=== PATIENT | female | born 1975 | race Two or more races ===

== ENCOUNTER → 2025-01-26 | Outpatient (CLI) | payer BC ==
[2025-01-26 16:15] LABS: Nucleated Red Blood Cells % 0.1 %
[2025-01-26 16:17] LABS: Hematocrit 33.5 % (36.0-46.0); Hemoglobin 10.6 g/dL (12.2-16.2); Mean Corpuscular Hemoglobin 26.8 pg (28.0-32.0); Mean Corpuscular Volume 84.6 fL (80.0-100.0)
== END | disposition home or self-care (01) ==
LOC: LAB 15:23
PROVIDERS: ATTEND Nurse Practitioner Family
DX: D50.0 Iron deficiency anemia secondary to blood loss (chronic) (principal)
CPT/HCPCS: 36415; 85025

== ENCOUNTER 2025-04-11 12:50 | Inpatient (IN) | payer BC ==
[~2025-04-11] VITALS: Ht 174 cm; Wt 131.0 kg
--- NOTE | 2025-04-11 14:48 | ED.PDOC ---
HPI (NEURO) HPI Comments 50 year old female with past medical history of MS presents to the ED with a chief complaint of generalized body pain onset 5 days. She has been experiencing generalized body pain, low back pain due to MS flare up, has been taking Baclofen with no improvement of symptoms.She has been hospitalized several times at [facility] for steroid treatments. No other symptoms or modifying factors present at this time. 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 History Family History Family History: Reviewed,noncontributory to illness, No family hx of Cancer, No family hx of DM, No family hx of Heart ricarda, No family hx of HTN, No family hx ofKidney ricarda, No family hx of Liver ricarda, No family hx of Lung ricarda, No family hx of Stroke Social History Smoker: Non-Smoker Alcohol: Denies ETOH Use Drugs: Denies Drug Use Lives In: Home All Other Systems: Reviewed and Negative (as per HPI) Physical Exam General Appearance: Normal HEENT: Normal ENT Inspection, Pharynx Normal, TMs Normal Neck: Full Range of Motion, Non-Tender, Normal, Normal Inspection Respiratory: Chest Non-Tender, Lungs Clear, No Accessory Muscle Use, No Respiratory Distress, Normal Breath Sounds Cardiovascular: No Edema, No JVD, No Murmur, No Gallop, Normal Peripheral Pulses, Regular Rate/Rhythm Breast Exam: Deferred Gastrointestinal: No Organomegaly, Non Tender, No Pulsatile Mass, Normal Bowel Sounds, Soft Genitalia: Deferred Pelvic: Deferred Rectal: Deferred Extremities: No calf tenderness, Normal capillary refill, Normal inspection, Normal range of motion, Non-tender, No pedal edema Musculoskeletal : Apperance: Normal Neurologic: Alert, electrical inspector II-XII nml as Tested, No Motor Deficits, Normal Affect, Normal Mood, No Sensory Deficits Cerebellar Function: Normal Reflexes: Normal Skin: Dry, Normal Color, Warm Lymphatic: No Adenopathy Was a procedure done? Was a procedure done?: No X-Ray, Labs, Meds, VS Vital Signs Date Time Temp Pulse Resp B/P (MAP) Pulse Ox O2 Delivery O2 Flow Rate FiO2 04/11/25 20:30 99.4 135 20 148/58 (88) 96 99.4 04/11/25 17:49 78 18 153/89 04/11/25 17:19 118 22 142/92 04/11/25 15:33 98.5 127 24 156/85 (108) 98 98.5 04/11/25 14:53 108 04/11/25 12:55 97.8 119 18 158/91 97 97.8 Lab Test 04/11/25 15:00 04/11/25 14:45 Range/Units White Blood Count 14.1 H 4.4-10.8 10^3/uL Red Blood Count 4.39 4.0-5.20 10^6/uL Hemoglobin 11.6 L 12.2-16.2 g/dL Hematocrit 36.6 36.0-46.0 % Mean Corpuscular Volume 83.4 80.0-100.0 fL Mean Corpuscular Hemoglobin 26.5 L 28.0-32.0 pg Mean Corpuscular Hemoglobin Concent 31.7 L 32.0-36.0 g/dL Red Cell Distribution Width 17.8 H 11.8-14.3 % Platelet Count 448 140-450 10^3/uL Mean Platelet Volume 6.7 L 6.9-10.8 fL Neutrophils (%) (Auto) 82.4 H 37.0-80.0 % Lymphocytes (%) (Auto) 10.2 10.0-50.0 % Monocytes (%) (Auto) 6.6 0.0-12.0 % Eosinophils (%) (Auto) 0.2 0.0-7.0 % Basophils (%) (Auto) 0.6 0.0-2.0 % Neutrophils # (Auto) 11.6 H 1.6-8.6 10 ^3/uL Lymphocytes # (Auto) 1.4 0.4-5.4 10 ^3/uL Monocytes # (Auto) 0.9 0-1.3 10 ^3/uL Eosinophils # (Auto) 0 0-0.8 10 ^3/uL Basophils # (Auto) 0.1 0-0.2 10 ^3/uL Nucleated Red Blood Cells 0.1 % Erythrocyte Sedimentation Rate 33 H 0-20 mm/hr Sodium Level 135 L 136-145 mmol/L Potassium Level 3.2 L 3.5-5.1 mmol/L Chloride Level 100 98-107 mmol/L Carbon Dioxide Level 23 20-31 mmol/L Anion Gap 12 5-15 Blood Urea Nitrogen 6 L 9-23 mg/dL Creatinine 0.90 0.550-1.02 mg/dL Glomerular Filtration Rate Calc 77 >90 mL/min BUN/Creatinine Ratio 6.7 L 10.0-20.0 Serum Glucose 100 74-106 mg/dL Calcium Level 9.2 8.7-10.4 mg/dL Magnesium Level 1.3 L 1.6-2.6 mg/dL Troponin I High Sensitivity 4 </=34 ng/L C-Reactive Protein High Sensitivity 1.38 H <1.0 mg/dL B-Type Natriuretic Peptide 110.11 0-100 pg/mL Urine Color Light-yellow Yellow Urine Clarity Turbid H Clear Urine pH 6.5 5.0-9.0 Urine Specific [place] 1.012 1.001-1.035 Urine Protein Negative Negative Urine Ketones Negative Negative Urine Blood Negative Negative /uL Urine Nitrite Negative Negative Urine Bilirubin Negative Negative Urine Urobilinogen Normal Negative mg/dL Urine Leukocyte Esterase Negative Negative /uL Urine RBC 1 0 - 4 /hpf Urine Microscopic WBC 1 0-5 /HPF Urine Squamous Epithelial Cells Mod <5 /hpf Urine Bacteria Few H None Seen /hpf Urine Hyaline Casts Few 0 - 2 /lpf Urine Glucose Normal Normal mg/dL Urine Test Negative Negative Urine Opiates Screen Neg NEGATIVE Urine Fentanyl Screen Neg NEGATIVE Urine Barbiturates Screen Neg NEGATIVE Urine Phencyclidine Screen Neg NEGATIVE Urine Amphetamines Screen Neg NEGATIVE Urine Benzodiazepines Screen Neg NEGATIVE Urine Cocaine Screen Neg NEGATIVE Urine Cannabinoids Screen Neg NEGATIVE X-Ray, Labs, Meds, VS Comment 50 year old female with past medical history of MS presents to the ED with a chief complaint of generalized body pain onset 5 days Patient arrives alert and oriented, ABC's intact, afebrile, vital signs stable, saturating well in room air Peripheral IV insertion+ labs were ordered. CBC was ordered to exclude anemia, blood loss, or infection. BMP was ordered to exclude electrolyte abnormalities, renal failure, dehydration, hyperglycemia ESR was ordered. C-reactive protein was ordered. Urinalysis was ordered to rule out UTI or hematuria. Patients work up was remarkable for MS flare up, Will be admitted for pain and possible IV steroids The patient's workup reveals that the patient needs further evaluation and/or treatment for the above medical conditions. Patient verbalized understanding of the above and is awaiting further evaluation by the admitting service. Time of 1ST Reevaluation: 15:15 Reevaluation 1ST: Unchanged Patient Education/Counseling: Diagnosis, Treatment Family Education/Counseling: No Family Present Departure 1 Departure Time of Disposition: 14:47 Impression: Primary Impression: Multiple sclerosis exacerbation Disposition: ADMITTED INPATIENT Condition: Serious e-Prescriptions Methylprednisolone (Medrol Dosepak) 4 Mg Benoit 4 MG PO UD, #21 TAB UAD Prov: EDUARDO AMADO DO 04/16/25 Furosemide (Lasix) 40 Mg Tab 40 MG PO DAILY for 20 Days, #20 TAB Prov: EDUARDO AMADO DO 04/16/25 Losartan Potassium (Losartan Potassium) 50 Mg Tab 50 MG PO DAILY for 30 Days, #30 TAB 3 Refills Prov: EDUARDO AMADO DO 04/16/25 Estradiol (Estradiol) 1 Mg Tab 0.5 MG PO Q12HR for 30 Days, #30 TAB 0 Refills Prov: EDUARDO AMADO DO 04/16/25 Critical Care Note Critical Care Time?: No Stability Stability form required: No Heart Score Heart Score: Heart Score Response (Comments) Value History N/A 0 EKG N/A 0 Age N/A 0 Risk Factors N/A 0 Troponin N/A 0 Total 0 I personally scribed for SHELLY LOERA NP ([email or web address]) on 04/11/25 at 14:55. Electronically submitted by Heather Brooks ([email or web address]). SHELLY LOERA NP Apr 11, 2025 14:48
[2025-04-11 15:20] LABS: Hematocrit 36.6 % (36.0-46.0); Hemoglobin 11.6 g/dL (12.2-16.2); Mean Corpuscular Hemoglobin 26.5 pg (28.0-32.0); Mean Corpuscular Volume 83.4 fL (80.0-100.0); Nucleated Red Blood Cells % 0.1 %
[2025-04-11 15:29] LABS: Chloride 100 mmol/L (98-107)
[2025-04-11 15:30] LABS: Anion Gap 12 (5-15); Calcium 9.2 mg/dL (8.7-10.4); Carbon Dioxide 23 mmol/L (20-31)
[2025-04-11 15:35] LABS: BUN/Creatinine Ratio 6.7 (10.0-20.0); Glucose 100 mg/dL (74-106)
[2025-04-11 15:36] LABS: Blood Urea Nitrogen 6 mg/dL (9-23); Potassium 3.2 mmol/L (3.5-5.1); Sodium 135 mmol/L (136-145)
[2025-04-11 16:37] LABS: Urine Protein, UAD Negative (Negative)
[2025-04-11] MEDS: MORPHINE SULFATE 4 MG/ML SYR/VIAL IV ONE (17:19)
[2025-04-11] MEDS: ONDANSETRON HCL 4 MG/2 ML VIAL IM ONE (17:20)
--- NOTE | 2025-04-11 21:26 | DVHHPRES ---
History of Present Illness Resident Creating Document: JUAN ANTONIO BLACK RESIDENT History of Present Illness Ms Lawrence Ogden, a 50-year-old female with past medical history of hypertension, relapsing remitting multiple sclerosis, hiatal hernia presented to the ER accompanied by , with the complaints of intractable back pain radiating to legs with tingling and shock-like sensations for 3 days. She denies any recent trauma. During these flares she denies any visual symptoms. She also reports having urinary frequency, urgency and burning sensation. She described her typical flare up as muscle and back pain. The patient was initially diagnosed with MS in 2002, after an episode of left eye blindness, which resolved after 12 weeks of treatment. Previously she had a neurologist from [facility], recently she is switched her insurance to [email or web address], now she has not established with any neurologist. She also has a pressure-like chest pain, no relation with breathing or position change. The patient was having shallow breathing most likely due to pain. She denies any cough, fever or any recent s ick contacts. She reports having following up with Dr. Blandon for the hiatal hernia, she is scheduled for endoscopy and colonoscopy with GI in August and September. She has no other complaints at this time. Past medical history: As above Past surgical history: Bilateral salpingo-oophorectomy followed by multiple ectopic pregnancies, umbilical hernia repair, cholecystectomy. Allergies: None Smoking: Cigarettes 15 pack years. Quit Vapes nicotine currently Alcohol: Drinks 3 glasses of beer everyday. Full code Review of Systems Genitourinary: Dysuria, Frequency, Incontinence Musculoskeletal: back pain Neurological: Weakness, Numbness Allergies: Coded Allergies: NO KNOWN ALLERGIES (Unverified , 04/11/25) Exam Vital Signs Vital Signs Date Time Temp Pulse Resp B/P (MAP) Pulse Ox O2 Delivery O2 Flow Rate FiO2 04/11/25 20:30 99.4 135 20 148/58 (88) 96 99.4 Exam Pt is lying on bed General Appearance: Alert, Oriented X3, Cooperative, Mild distress HEENT: Atraumatic, Mucous membranes moist/pink, internuclear ophthalmoplegia present, no consuelo-anam pupil Respiratory: Clear to auscultation, Normal air movement, No added sounds Cardiovascular: Regular rate, Normal S1, Normal S2, No murmurs Abdominal/ : Active bowel sounds, Soft, no distention, no tenderness Extremities: Bilateral 1+ pedal edema, Normal pulses, No tenderness/swelling Skin: No Significant rash, except past surgical scars Neuro: Normal speech, dermatomes of upper arm decreased sensation, 4/5 upper and lower extremity motor strength Psych/Mental Status: Mental status NL, Mood NL Nurse was there as compo caster during examination Labs/Xrays Labs Test 04/11/25 15:00 04/11/25 14:45 Range/Units White Blood Count 14.1 H 4.4-10.8 10^3/uL Red Blood Count 4.39 4.0-5.20 10^6/uL Hemoglobin 11.6 L 12.2-16.2 g/dL Hematocrit 36.6 36.0-46.0 % Mean Corpuscular Volume 83.4 80.0-100.0 fL Mean Corpuscular Hemoglobin 26.5 L 28.0-32.0 pg Mean Corpuscular Hemoglobin Concent 31.7 L 32.0-36.0 g/dL Red Cell Distribution Width 17.8 H 11.8-14.3 % Platelet Count 448 140-450 10^3/uL Mean Platelet Volume 6.7 L 6.9-10.8 fL Neutrophils (%) (Auto) 82.4 H 37.0-80.0 % Lymphocytes (%) (Auto) 10.2 10.0-50.0 % Monocytes (%) (Auto) 6.6 0.0-12.0 % Eosinophils (%) (Auto) 0.2 0.0-7.0 % Basophils (%) (Auto) 0.6 0.0-2.0 % Neutrophils # (Auto) 11.6 H 1.6-8.6 10 ^3/uL Lymphocytes # (Auto) 1.4 0.4-5.4 10 ^3/uL Monocytes # (Auto) 0.9 0-1.3 10 ^3/uL Eosinophils # (Auto) 0 0-0.8 10 ^3/uL Basophils # (Auto) 0.1 0-0.2 10 ^3/uL Nucleated Red Blood Cells 0.1 % Erythrocyte Sedimentation Rate 33 H 0-20 mm/hr Sodium Level 135 L 136-145 mmol/L Potassium Level 3.2 L 3.5-5.1 mmol/L Chloride Level 100 98-107 mmol/L Carbon Dioxide Level 23 20-31 mmol/L Anion Gap 12 5-15 Blood Urea Nitrogen 6 L 9-23 mg/dL Creatinine 0.90 0.550-1.02 mg/dL Glomerular Filtration Rate Calc 77 >90 mL/min BUN/Creatinine Ratio 6.7 L 10.0-20.0 Serum Glucose 100 74-106 mg/dL Calcium Level 9.2 8.7-10.4 mg/dL Troponin I High Sensitivity 4 </=34 ng/L C-Reactive Protein High Sensitivity 1.38 H <1.0 mg/dL Urine Color Light-yellow Yellow Urine Clarity Turbid H Clear Urine pH 6.5 5.0-9.0 Urine Specific [place] 1.012 1.001-1.035 Urine Protein Negative Negative Urine Ketones Negative Negative Urine Blood Negative Negative /uL Urine Nitrite Negative Negative Urine Bilirubin Negative Negative Urine Urobilinogen Normal Negative mg/dL Urine Leukocyte Esterase Negative Negative /uL Urine RBC 1 0 - 4 /hpf Urine Microscopic WBC 1 0-5 /HPF Urine Squamous Epithelial Cells Mod <5 /hpf Urine Bacteria Few H None Seen /hpf Urine Hyaline Casts Few 0 - 2 /lpf Urine Glucose Normal Normal mg/dL SEPSIS Sepsis Screen Date sepsis recognized/suspect: Apr 11, 2025 Time Sepsis recognized/suspect: 1257 Recent Procedure: No On Antibiotic Therapy: No Respiratory Rate >20: No Heart Rate >90: Yes Temp<36 C (96.8 F) or >38.3 C: No SBP <90 or MAP <65 mmHG: No New Acute Mental Status Change: No Is the patient on CPAP, BIPAP,: No Physician Orders Electrocardigram (04/11/25 14:41) Vital Signs Date Time Temp Pulse Resp B/P (MAP) Pulse Ox O2 Delivery O2 Flow Rate FiO2 04/11/25 20:30 99.4 135 20 148/58 (88) 96 99.4 04/11/25 17:19 118 22 142/92 04/11/25 15:33 98.5 127 24 156/85 (108) 98 98.5 04/11/25 14:53 108 Laboratory Tests Test 04/11/25 15:00 White Blood Count 14.1 10^3/uL (4.4-10.8) H Medications Medications Dose Ordered Sig/Mable Route Start Time Stop Time Status Last Admin Dose Admin Morphine Sulfate 4 mg ONCE ONCE IV 04/11/25 16:45 04/11/25 16:46 DC 04/11/25 17:19 4 MG Ondansetron HCl 4 mg ONCE ONCE IM 04/11/25 17:15 04/11/25 17:16 DC 04/11/25 17:20 4 MG Assessment/Plan Assessment/Plan Acute exacerbation of MS Intractable back pain due to MS MS triggered by possible pneumonia Rule out stroke -IV methylprednisolone 1000 mg daily -baclofen -tizanidine -IV Dilaudid and IV ondansetron for symptom control -neurology consulted -brain MRI ordered -Head CT ordered -vitamin B12 ordered Chest pain rule out ACS -EKG: No acute ischemic changes -troponin 3 times WNL Pneumonia due to Gram-positive or Gram-negative organism -IV ceftriaxone -IV azithromycin -ESR and CRP raised Microcytic hypochromic anemia -monitor H&H -stool FOBT sent -iron panel sent Hiatal hernia -IV pantoprazole -follow up outpatient with GI -endoscopy scheduled outpatient GI prophylaxis: Pantoprazole DVT prophylaxis: SCDs Diet: Clear liquid Goals of care discussed with the patient for more than 27 minutes: Full code status Case discussed with Dr. Sotelo, patient and RN Plan discussed with: Patient, Other (RN) Visit Coding STANDARD RES Billing Provider: DARRIAN SOTELO MD Date of Service if different f: Apr 12, 2025 Common Visit Codes: [id number] INP/OBS CARE (HIGH) Secondary Visit Codes: [id number] CARE PLAN 30 MINUTES JUAN ANTONIO BLACK RESIDENT Apr 11, 2025 21:26 MG VELOZ RESIDENT Apr 12, 2025 04:55
[2025-04-11 23:17] LABS: Opiate Scree,Urine Neg (NEGATIVE)
[2025-04-11 23:26] LABS: Amphetamine Screen, Urine Neg (NEGATIVE); Barbiturate Scree,Urine Neg (NEGATIVE); Benzodiazephine Screen, Urine Neg (NEGATIVE); Cannabinoid Screen, Urine Neg (NEGATIVE); Cocaine Screen, Urine Neg (NEGATIVE); Phencyclidine Screen, Urine Neg (NEGATIVE)
[2025-04-11] MEDS: POTASSIUM EFFERVESENT TAB 25 MEQ PO ONE (23:27)
[2025-04-11] MEDS: PANTOPRAZOLE 40 MG/10 ML VIAL INJ IV ONE (23:27)
[2025-04-11] MEDS: HYDROcodone-ACET 5/325MG TAB PO PRN (23:28)
[2025-04-11] MEDS: methylPREDNISolone SOD SUCC 1,000 MG in SODIUM CHL 0.9% 250 ML IV ONE (23:35)
[2025-04-12] MEDS: MAGNESIUM SULFATE 1GM/100ML 100 ML IV SCH (01:00)
[2025-04-12] MEDS: ONDANSETRON HCL 4 MG/2 ML VIAL IV PRN (02:18)
[2025-04-12] MEDS: HYDROmorphone HCL 2 MG/ML VL/or syr IV ONE ×2 (02:18→02:36)
[2025-04-12 02:29] VITALS: PULSE 120; RESP 18; O2SAT 98
--- NOTE | 2025-04-12 03:32 | DVH ---
CHEST RADIOGRAPH INDICATION: sob TECHNIQUE: Single frontal view of the chest was obtained COMPARISON: None FINDINGS: Lines and Tubes: None Lungs: Clear Pleura: No effusion. No pneumothorax. Cardiomediastinal contours: Unremarkable Bones: Unremarkable IMPRESSION: 1. No acute disease.
[2025-04-12] MEDS: AZITHROMYCIN 500MG/250ML 250 ML IV ONE (04:07)
[2025-04-12] MEDS ORDERED: TIZA4CAP7 PO (04:17)
[2025-04-12] MEDS ORDERED: BACL20TA PO (04:17)
[2025-04-12] MEDS: LORazepam 2MG/ML-1ML VIAL IV ONE (04:25)
[2025-04-12 04:47] LABS: COVID19 ANTIGEN SOFIA FIA NEGATIVE (NEGATIVE)
[2025-04-12 05:54] LABS: Hematocrit 34.0 % (36.0-46.0); Hemoglobin 11.1 g/dL (12.2-16.2); Mean Corpuscular Hemoglobin 27.1 pg (28.0-32.0); Mean Corpuscular Volume 83.0 fL (80.0-100.0); Nucleated Red Blood Cells % 0.0 %
[2025-04-12 06:15] LABS: Alanine Aminotransferase 20 U/L (7-40); Albumin 4.3 g/dL (3.2-4.8); Alkaline Phosphatase 66 U/L (46-116); Anion Gap 14 (5-15); Bilirubin, Total 0.6 mg/dL (0.2-1.0); Calcium 8.8 mg/dL (8.7-10.4); Carbon Dioxide 21 mmol/L (20-31); Total Protein 7.2 g/dL (5.7-8.2)
[2025-04-12 06:27] LABS: Chloride 96 mmol/L (98-107); Glucose 218 mg/dL (74-106); Potassium 3.4 mmol/L (3.5-5.1); Sodium 131 mmol/L (136-145)
[2025-04-12 06:32] LABS: BUN/Creatinine Ratio 5.5 (10.0-20.0)
[2025-04-12 06:36] LABS: Blood Urea Nitrogen 6 mg/dL (9-23)
[2025-04-12 06:50] LABS: Iron 25.0 ug/dL (50-170); Total Iron Binding Capacity 425.0 ug/dL (250-425)
--- NOTE | 2025-04-12 07:07 | ECG ---
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
--- NOTE | 2025-04-12 08:43 | DVH ---
EXAMINATION: MRI BRAIN HEAD WO CONTRAST INDICATION: MS flare up COMPARISON: None. TECHNIQUE: Multiplanar, multisequence magnetic resonance imaging of the brain was performed without the use of intravenous contrast. FINDINGS: No evidence of acute infarct. No intracranial hemorrhage. No mass effect. There are periventricular and deep white matter T2/FLAIR hyperintensities which are oriented perpendicular to the lateral ventricles. The appearance is most suggestive of demyelinating disease given the history of multiple sclerosis. The ventricles and sulci are normal in size for age. Clear basal cisterns. Flow voids in the major intracranial vessels are maintained. No abnormality of the orbits. Paranasal sinuses and mastoid air cells are clear. No abnormality of the visualized osseous structures and extracranial soft tissues. IMPRESSION: 1. No acute infarct, intracranial hemorrhage, mass effect, or hydrocephalus. 2. Periventricular and deep white matter T2/FLAIR hyperintensities are most suggestive of demyelinating disease given the history of multiple sclerosis. If there is concern for active demyelination, MRI of the brain with intravenous contrast is recommended.
--- NOTE | 2025-04-12 08:52 | DVH ---
CLINICAL HISTORY: R/o stroke TECHNIQUE: Helical scanning was performed of the head from the skull base to the vertex. Multiplanar reconstructions were performed. This exam was performed according to our departmental dose optimization program. Up-to-date CT equipment and radiation dose reduction techniques are utilized as appropriate. CTDI 53 DLP 964 COMPARISON: MRI BRAIN HEAD WO CONTRAST on DOS: 04/12/25 FINDINGS: There is no evidence for acute intracranial hemorrhage, acute ischemic changes, mass, mass effect, or extra-axial fluid collection. There is no hydrocephalus or midline shift. There is no effacement of the cerebral sulci and basal subarachnoid cisterns. The fortune-white matter differentiation is well maintained. The imaged paranasal sinuses are clear. IMPRESSION: NO ACUTE INTRACRANIAL ABNORMALITY SEEN.
[2025-04-12 10:19] VITALS: PULSE 104; RESP 16; O2SAT 95
[2025-04-12] MEDS: PANTOPRAZOLE 40 MG/10 ML VIAL INJ IV SCH (10:43)
[2025-04-12] MEDS: methylPREDNISolone SOD SUCC 1,000 MG in SODIUM CHL 0.9% 250 ML IV SCH (12:32)
[2025-04-12] MEDS ORDERED: HYDROmorphone HCL 2 MG/ML VL/or syr IV ONE (14:00)
[2025-04-12] MEDS: LORazepam 2MG/ML-1ML VIAL IV PRN (14:42)
[2025-04-12] MEDS: HYDROmorphone HCL 2 MG/ML VL/or syr IV PRN (14:54)
[2025-04-12] MEDS: LACTATED RINGER'S 1,000 ML IV SCH (15:00)
--- NOTE | 2025-04-12 16:21 | DVHPNRES ---
Progress Note Date Seen: Apr 12, 2025 Resident Creating Document: JODI GONZALEZ Medical Necessity Reason Pt with a Central, PICC or Fol: No Subjective Review of Systems Ms Lawrence Ogden, a 50-year-old female with past medical history of hypertension, relapsing remitting multiple sclerosis, hiatal hernia presented to the ER accompanied by , with the complaints of intractable back pain radiating to legs with tingling and shock-like sensations for 3 days. She denies any recent trauma. During these flares she denies any visual symptoms. She also reports having urinary frequency, urgency and burning sensation. She described her typical flare up as muscle and back pain. The patient was initially diagnosed with MS in 2002, after an episode of left eye blindness, which resolved after 12 weeks of treatment. Previously she had a neurologist from [facility], recently she is switched her insurance to [employer], now she has not established with any neurologist. She also has a pressure-like chest pain, no relation with breathing or position change. The patient was having shallow breathing most likely due to pain. She denies any cough, fever or any recent sick contacts. She reports having following up with Dr. Blandon for the hiatal hernia, she is scheduled for endoscopy and colonoscopy with GI in August and September. She has no other complaints at this time. Past medical history: As above Past surgical history: Bilateral salpingo-oophorectomy followed by multiple ectopic pregnancies, umbilical hernia repair, cholecystectomy. Allergies: None Smoking: Cigarettes 15 pack years. Quit Vapes nicotine currently Alcohol: Drinks 3 glasses of beer everyday. Objective vital signs Vital Sign Date Time Temp Pulse Resp B/P (MAP) Pulse Ox O2 Delivery O2 Flow Rate FiO2 04/12/25 15:36 98.0 91 16 142/73 (96) 95 98.0 04/12/25 10:19 Room Air* 0 21 medications Current Medications Medications Dose Ordered Sig/Mable Route Start Time Stop Time Status Last Admin Dose Admin Acetaminophen/ Hydrocodone Bitart 1 tab Q4HP PRN PO 04/11/25 21:30 04/11/25 23:28 1 TAB Methylprednisolone Sodium Succinate 1000 mg/Sodium Chloride 250 ml @ 300 mls/hr DAILY IV 04/12/25 10:00 04/12/25 12:32 300 MLS/HR Pantoprazole Sodium 40 mg DAILY IV 04/12/25 10:00 04/12/25 10:43 40 MG Ondansetron HCl 4 mg Q6HPRN PRN IV 04/11/25 22:30 04/12/25 10:42 4 MG Ceftriaxone Sodium 50 ml @ 100 mls/hr DAILY@09 IV 04/13/25 09:00 Azithromycin 250 ml @ 125 mls/hr DAILY IV 04/13/25 10:00 Lorazepam 1 mg Q6HP PRN IV 04/12/25 14:00 04/12/25 14:42 1 MG Hydromorphone HCl 0.5 mg Q4HPRN PRN IV 04/12/25 14:15 04/12/25 14:54 0.5 MG Lactated Ringer's 1,000 ml @ 60 mls/hr [id number] IV 04/12/25 15:00 Examination General Appearance: Alert, Oriented X3, Cooperative, Mild distress HEENT: Atraumatic, Mucous membranes moist/pink, internuclear ophthalmoplegia present, no consuelo-anam pupil Respiratory: Clear to auscultation, Normal air movement, No added sounds Cardiovascular: Regular rate, Normal S1, Normal S2, No murmurs Abdominal/ : Active bowel sounds, Soft, no distention, no tenderness Extremities: Bilateral 1+ pedal edema, Normal pulses, No tenderness/swelling Skin: No Significant rash, except past surgical scars Neuro: Normal speech, dermatomes of upper arm decreased sensation, 4/5 upper and lower extremity motor strength Psych/Mental Status: Mental status NL, Mood NL Nurse was there as c d still operator during examination laboratory and microbiology Laboratory Tests 04/12/25 05:28 Test 04/12/25 05:28 Range/Units Serum Glucose 218 H 74-106 mg/dL Problem List/Assessment/Plan Problem List/Assessment/Plan Assessment and plan Acute exacerbation of MS Intractable back pain due to MS MS triggered by possible pneumonia Ruled out stroke -IV methylprednisolone 1000 mg daily -baclofen -tizanidine -IV Dilaudid and IV ondansetron for symptom control -neurology consulted -brain MRI ordered -Head CT ordered -vitamin B12 ordered Chest pain ruled out ACS -EKG: No acute ischemic changes -troponin 3 times WNL Pneumonia due to Gram-positive or Gram-negative organism -IV ceftriaxone -IV azithromycin -ESR and CRP raised Microcytic hypochromic anemia -monitor H&H -stool FOBT sent -iron panel sent Hiatal hernia -IV pantoprazole -follow up outpatient with GI -endoscopy scheduled outpatient GI prophylaxis: Pantoprazole DVT prophylaxis: SCDs Diet: Clear liquid Goals of care discussed Full code status Case discussed with Dr. Mcintyre Plan discussed with: Patient Date of Service: Apr 12, 2025 Billing Provider: BHAVESH WARREN MD Common Visit Codes: [id number] INP/OBS CARE(HIGH) JODI GONZALEZ RESIDENT Apr 12, 2025 16:21
[2025-04-12 16:54] VITALS: BP 130/67; PULSE 114; RESP 16; TEMP 98; O2SAT 91
[2025-04-12] MEDS ORDERED: OMEP20TA PO (17:56)
[2025-04-12] MEDS ORDERED: FAMO-12 PO (17:56)
[2025-04-12] MEDS ORDERED: IBUP-1454 PO (17:56)
[2025-04-12] MEDS ORDERED: NORE-79 PO (17:56)
[2025-04-12] MEDS ORDERED: ESTR1TAB6 PO (17:57)
[2025-04-12] MEDS ORDERED: LOSA-534 PO (17:57)
--- NOTE | 2025-04-12 20:46 | DVHINCON2 ---
Date of service: Apr 12, [address] Glynn Reason for Consultation MS flares up History of Present Illness Ms. Bravo is a 50 years old right-handed female with a history of multiple sclerosis, obesity, she came to the [facility] on 06/12/2024 with a chief complaint of diffuse body pain, which is typical to her MS exacerbation. At that time, she is alert and fully oriented, she provided the following history She always has constant pain in the neck, back, and all his extremities, but since 02/03/2025, the patient has been 15 times stronger, which is typical to her MS exacerbation and she decided to come to hospital for medical attention In 2002, in the age of 27, she developed left eye blindness in that she had no light perception with recovered to baseline in about 12 weeks, she also had weakness in both legs, the patient was seen by a neurologist, after MR brain scan, MRI, in the lumbar puncture, the patient is found to have multiple sclerosis, the patient has been seen by many doctors, including neurologist in [facility], [facility], beta serum, Avonex, Copaxone caused severe flu-like symptoms, She was on Aubagio previously however she has not been on disease modifying treatment for five years. She said, before this time, the last MRI brain scan was a few years ago. The last time she had MS exacerbation was a few months earlier She has black control difficulty because of uterus disease She has tremors in the hands with the left-side more affected for about five years, the tremors a constant, no matter she is physically active now active, alcohol does not affect the tremors, at this time, because of diffuse body pain, has tremors all over the body as if he was shivering. Her father had tremors in both hands Urinalysis, 04/11/2025: WBC: 1, urine leukocyte esterase: Negative UDS, 04/11/2025: Negative WBC/HB/PLT/MCV, 04/12/2025: 11.7/11.1/419/83 ESR, 04/11/2025:33. Na 04/12/2025: 131 BUN/CIWA, 04/12/2025: 6/1.1 GFR, 04/12/2025: 60 Vitamin B12, 04/12/2025: 297 TSH, 04/12/2025: 0.84 Vitamin-D, 04/12/2025: 18.7 Chest x-ray, 04/11/2025: No acute disease CT head, 04/12/2025: NO ACUTE INTRACRANIAL ABNORMALITY SEEN. MRI head, 04/12/2025: 1. No acute infarct, intracranial hemorrhage, mass effect, or hydrocephalus. 2. Periventricular and deep white matter T2/FLAIR hyperintensities are most suggestive of demyelinating disease given the history of multiple sclerosis. If there is concern for active demyelination, MRI of the brain with intravenous contrast is recommended. Past Medical History Multiple sclerosis, obesity Past Surgical History Appendectomy, Cholecystectomy, Right ovary surgery, left ectopic surgery Family History: FH: sleep apnea G8 MOTHER FHx: atrial fibrillation G8 MOTHER G8 FATHER Family History Leukemia, atrial fibrillation Social History She vapes, but no history of drug/alcohol abuse Allergies: Coded Allergies: NO KNOWN ALLERGIES (Unverified , 04/11/25) Home Meds Reported Medications Estradiol (Estradiol) 1 Mg Tab, 1 MG PO DAILY, MG 04/12/25 Losartan Potassium (Losartan Potassium) 50 Mg Tab, 50 MG PO DAILY for 30 Days, MG 04/12/25 Omeprazole (Gnp Omeprazole) 20 Mg Tab, 1 TAB PO DAILY, #90 TAB 1 Refill 04/12/25 Norethin Acet & Estrad-Fe (Microgestin Fe) Fe 05/23 Tab, 1 TAB PO DAILY, #28 TAB 11 Refills 04/12/25 Ibuprofen (Ibuprofen) 600 Mg Tab, 600 MG PO Q8HPRN PRN for PAIN SCALE 1 THRU 6, MG 0 Refills 04/12/25 Famotidine (Famotidine) 20 Mg Tab, 40 MG PO DAILY for 30 Days, MG 04/12/25 Tizanidine Hydrochloride (TIZANIDINE HCL) 4 Mg Cap, 4 CAP PO Q8HPRN PRN 04/12/25 Baclofen (Baclofen) 20 Mg Tab, 20 TAB PO TID 04/12/25 Current Medications Current Medications Medications (Trade) Dose Ordered Sig/Mable Route PRN Reason Start Time Stop Time Status Last Admin Acetaminophen/ Hydrocodone Bitart (Hart 5/325MG Tab) 1 tab Q4HP PRN PO MODERATE PAIN (4-6 PAIN SCALE) 04/11/25 21:30 04/11/25 23:28 Methylprednisolone Sodium Succinate 1000 mg/Sodium Chloride 250 ml @ 300 mls/hr DAILY IV 04/12/25 10:00 04/12/25 12:32 Pantoprazole Sodium (Protonix) 40 mg DAILY IV 04/12/25 10:00 04/12/25 10:43 Ondansetron HCl (Zofran) 4 mg Q6HPRN PRN IV NAUSEA / VOMITING 04/11/25 22:30 04/12/25 10:42 Magnesium Sulfate/ Dextrose 100 ml @ 100 mls/hr Q1HR IV 04/12/25 00:00 04/12/25 01:59 DC 04/12/25 01:00 Ceftriaxone Sodium 50 ml @ 100 mls/hr DAILY@09 IV 04/13/25 09:00 Azithromycin 250 ml @ 125 mls/hr DAILY IV 04/13/25 10:00 Lorazepam (Ativan Inj) 1 mg Q6HP PRN IV ANXIETY 04/12/25 14:00 04/12/25 14:42 Hydromorphone HCl (Dilaudid Injection) 0.5 mg Q4HPRN PRN IV PAIN SCALE 7 THRU 10 04/12/25 14:15 04/12/25 14:54 Lactated Ringer's 1,000 ml @ 60 mls/hr [id number] IV 04/12/25 15:00 04/12/25 15:00 Ergocalciferol (Vitamin D 50,000 Unit) 50,000 unit Q7D PO 04/12/25 20:15 UNV Review of Systems As above, the other systems are negative Vital Signs Vital Signs Date Time Temp Pulse Resp B/P (MAP) Pulse Ox O2 Delivery O2 Flow Rate FiO2 04/12/25 20:00 Room Air* 0 21 04/12/25 16:54 114 16 91 04/12/25 16:54 98.0 130/67 (88) 98.0 Physical Exam GENERAL EXAM: General: the patient is well developed and nourished. No acute distress. HEENT: Normocephalic, neck is supple, no carotid bruits. No mass. RESPIRATORY: Normal respiratory effort with symmetrical lung expansion. Lungs clear to auscultation. CARDIOVASCULAR: Regular rate and rhythm with no murmurs. S1, S2. ABDOMEN: Soft, nontender, normal bowel sound NEUROLOGICAL: MENTAL STATUS: Awake and alert. Oriented to person, place, time and general circumstances. Able to give personal history. SPEECH, LANGUAGE, HIGHER CORTICAL FUNCTION: no aphasia or dysathria. CRANIAL NERVES: #2: Intact visual vera to confrontation. The optic discs were sharp. #3,4,6: Pupils are equal, round and reactive. EOMs full and conjugate. No nystagmus. #5: Facial sensation intact in all three divisions bilaterally. Mandibular strength intact. #7: Facial muscles symmetrical and strength intact. #8: Hearing grossly normal to voice. #9,10: Uvula and soft palate rise in the midline. Swallow and voice are normal. #11: Trapezius and sternomastoid strength intact bilaterally. #12: Tongue midline. No fasciculations or atrophy. SENSATION: Sensation to touch and pinprick is normal. MOTOR: Normal tone in the upper and lower extremity. Normal muscle bulk. No fasciculations. Constant mild tremor in torso and both upper extremities. Muscle strength of the major groups in the upper extremities is 5/5. Muscle strength of the major groups in the lower extremities is 5/5. REFLEXES: Deep tendon reflexes are symmetrical. No pathological reflexes. CEREBELLAR/COORDINATION: Finger to nose is normal bilaterally. GAIT/STATION: deferred. Labs/Diagnostic Data Labs Test 04/12/25 05:28 04/12/25 05:25 04/12/25 03:30 04/11/25 15:00 Range/Units White Blood Count 11.7 H 4.4-10.8 10^3/uL Red Blood Count 4.10 4.0-5.20 10^6/uL Hemoglobin 11.1 L 12.2-16.2 g/dL Hematocrit 34.0 L 36.0-46.0 % Mean Corpuscular Volume 83.0 80.0-100.0 fL Mean Corpuscular Hemoglobin 27.1 L 28.0-32.0 pg Mean Corpuscular Hemoglobin Concent 32.6 32.0-36.0 g/dL Red Cell Distribution Width 17.9 H 11.8-14.3 % Platelet Count 419 140-450 10^3/uL Mean Platelet Volume 6.8 L 6.9-10.8 fL Neutrophils (%) (Auto) 96.0 H 37.0-80.0 % Lymphocytes (%) (Auto) 3.3 L 10.0-50.0 % Monocytes (%) (Auto) 0.4 0.0-12.0 % Eosinophils (%) (Auto) 0.0 0.0-7.0 % Basophils (%) (Auto) 0.3 0.0-2.0 % Neutrophils # (Auto) 11.2 H 1.6-8.6 10 ^3/uL Lymphocytes # (Auto) 0.4 0.4-5.4 10 ^3/uL Monocytes # (Auto) 0.1 0-1.3 10 ^3/uL Eosinophils # (Auto) 0 0-0.8 10 ^3/uL Basophils # (Auto) 0 0-0.2 10 ^3/uL Nucleated Red Blood Cells 0.0 % Sodium Level 131 L 136-145 mmol/L Potassium Level 3.4 L 3.5-5.1 mmol/L Chloride Level 96 L 98-107 mmol/L Carbon Dioxide Level 21 20-31 mmol/L Anion Gap 14 5-15 Blood Urea Nitrogen 6 L 9-23 mg/dL Creatinine 1.10 H 0.550-1.02 mg/dL Glomerular Filtration Rate Calc 60 >90 mL/min BUN/Creatinine Ratio 5.5 L 10.0-20.0 Serum Glucose 218 H 74-106 mg/dL Calcium Level 8.8 8.7-10.4 mg/dL Iron Level 25 L 50-170 ug/dL Total Iron Binding Capacity 425 250-425 ug/dL Percent Iron Saturation 5.9 L 15-50 % Total Bilirubin 0.6 0.2-1.0 mg/dL Aspartate Amino Transferase (AST) 23 13-40 U/L Alanine Aminotransferase (ALT) 20 7-40 U/L Alkaline Phosphatase 66 46-116 U/L Total Protein 7.2 5.7-8.2 g/dL Albumin 4.3 3.2-4.8 g/dL Vitamin B12 Level 297 211-911 pg/mL Vitamin D 25-Hydroxy 18.7 L 30.0-100 ng/mL Thyroid Stimulating Hormone (TSH) 0.84 0.55-4.78 uIU/mL Influenza Type A Antigen Negative Negative Influenza Type B Antigen Negative Negative SARS-CoV-2 Antigen (Rapid) Negative NEGATIVE Erythrocyte Sedimentation Rate 33 H 0-20 mm/hr Troponin I High Sensitivity 4 </=34 ng/L C-Reactive Protein High Sensitivity 1.38 H <1.0 mg/dL B-Type Natriuretic Peptide 110.11 0-100 pg/mL Test 04/11/25 14:45 Range/Units Urine Color Light-yellow Yellow Urine Clarity Turbid H Clear Urine pH 6.5 5.0-9.0 Urine Specific [place] 1.012 1.001-1.035 Urine Protein Negative Negative Urine Ketones Negative Negative Urine Blood Negative Negative /uL Urine Nitrite Negative Negative Urine Bilirubin Negative Negative Urine Urobilinogen Normal Negative mg/dL Urine Leukocyte Esterase Negative Negative /uL Urine RBC 1 0 - 4 /hpf Urine Microscopic WBC 1 0-5 /HPF Urine Squamous Epithelial Cells Mod <5 /hpf Urine Bacteria Few H None Seen /hpf Urine Hyaline Casts Few 0 - 2 /lpf Urine Glucose Normal Normal mg/dL Urine Test Negative Negative Urine Opiates Screen Neg NEGATIVE Urine Fentanyl Screen Neg NEGATIVE Urine Barbiturates Screen Neg NEGATIVE Urine Phencyclidine Screen Neg NEGATIVE Urine Amphetamines Screen Neg NEGATIVE Urine Benzodiazepines Screen Neg NEGATIVE Urine Cocaine Screen Neg NEGATIVE Urine Cannabinoids Screen Neg NEGATIVE Assessment Reported history of multiple sclerosis Diffuse body pain/MS exacerbation Tremors, etiology unclear Plan/Recommendation Monitoring Supportive treatment IV Solu-Medrol 1000 mg IV daily x5 GI prophylaxis/pantoprazole DVT prophylaxis/Lovenox More recommendation per clinical course Prognosis: Poor This medical document was created using an electronic medical record system with M[employer] dictation system. Although this document has been carefully reviewed, there may still be some phonetic and typographical errors. These areas are purely typographical due to imperfections of the software programs, and do not reflect any compromise in the patient's medical care. Plan discussed with: Patient, Other ALICE FONTENOT MD Apr 12, 2025 20:46
[2025-04-12 21:00] VITALS: BP 134/71; PULSE 115; RESP 18; TEMP 97.4; O2SAT 95
[2025-04-12] MEDS: POTASSIUM EFFERVESENT TAB 25 MEQ PO ONE (21:39)
[2025-04-12] MEDS: ERGOCALCIFEROL 50,000 UNIT(1.25MG) CAP PO SCH (21:40)
[2025-04-12] MEDS: MELATONIN 5 MG TAB PO ONE (23:31)
[2025-04-13 01:00] VITALS: BP 137/72; PULSE 102; RESP 18; TEMP 97.2; O2SAT 95
[2025-04-13 05:00] VITALS: BP 143/72; PULSE 101; RESP 18; O2SAT 94
[2025-04-13 06:44] LABS: Hematocrit 33.8 % (36.0-46.0); Hemoglobin 10.9 g/dL (12.2-16.2); Mean Corpuscular Hemoglobin 26.7 pg (28.0-32.0); Mean Corpuscular Volume 82.9 fL (80.0-100.0); Nucleated Red Blood Cells % 0.1 %
[2025-04-13 06:51] LABS: Alanine Aminotransferase 25 U/L (7-40); Albumin 4.1 g/dL (3.2-4.8); Alkaline Phosphatase 57 U/L (46-116); Anion Gap 12 (5-15); BUN/Creatinine Ratio 12.5 (10.0-20.0); Bilirubin, Total 0.5 mg/dL (0.2-1.0); Blood Urea Nitrogen 11 mg/dL (9-23); Calcium 8.9 mg/dL (8.7-10.4); Carbon Dioxide 26 mmol/L (20-31); Chloride 99 mmol/L (98-107); Potassium 3.7 mmol/L (3.5-5.1); Sodium 137 mmol/L (136-145); Total Protein 6.9 g/dL (5.7-8.2)
[2025-04-13 06:52] LABS: Glucose 146 mg/dL (74-106)
[2025-04-13 09:17] VITALS: BP 146/73; PULSE 90; RESP 20; O2SAT 92
--- NOTE | 2025-04-13 09:17 | DVHPN2 ---
Progress Note - Dictate Date Seen: Apr 13, 2025 Medical Necessity Reason Pt with a Central, PICC or Fol: No Subjective Ms. Lawrence is a 50 years old right-handed female with a history of multiple sclerosis, obesity, she came to the [facility] on 06/12/2024 with a chief complaint of diffuse body pain, which is typical to her MS exacerbation. I have seen and examined the patient, talked to her nurse, she is doing fine, alert and fully oriented, the diffuse tremors are better/less intense, no new complaints She always has constant pain in the neck, back, and all his extremities, but since 02/03/2025, the patient has been 15 times stronger, which is typical to her MS exacerbation and she decided to come to hospital for medical attention Urinalysis, 04/11/2025: WBC: 1, urine leukocyte esterase: Negative UDS, 04/11/2025: Negative WBC/HB/PLT/MCV, 04/12/2025: 11.7/11.1/419/83 ESR, 04/11/2025:33. Na 04/12/2025: 131 BUN/CIWA, 04/12/2025: 6/1.1 GFR, 04/12/2025: 60, 04/13/2025: 79 Vitamin B12, 04/12/2025: 297 TSH, 04/12/2025: 0.84 Vitamin-D, 04/12/2025: 18.7 Chest x-ray, 04/11/2025: No acute disease CT head, 04/12/2025: NO ACUTE INTRACRANIAL ABNORMALITY SEEN. MRI head, 04/12/2025: 1. No acute infarct, intracranial hemorrhage, mass effect, or hydrocephalus. 2. Periventricular and deep white matter T2/FLAIR hyperintensities are most suggestive of demyelinating disease given the history of multiple sclerosis. If there is concern for active demyelination, MRI of the brain with intravenous contrast is recommended vital signs Vital Sign Date Time Temp Pulse Resp B/P (MAP) Pulse Ox O2 Delivery O2 Flow Rate FiO2 04/13/25 05:00 101 18 143/72 (95) 94 04/13/25 01:00 97.2 97.2 04/12/25 20:00 Room Air* 0 21 Total Intake and Output 04/12/25 04/12/25 04/13/25 15:00 23:00 07:00 Intake Total 250 ml 100 ml 150 ml Balance 250 ml 100 ml 150 ml medications Current Medications Medications Dose Ordered Sig/Mable Route Start Time Stop Time Status Last Admin Dose Admin Acetaminophen/ Hydrocodone Bitart 1 tab Q4HP PRN PO 04/11/25 21:30 04/11/25 23:28 1 TAB Methylprednisolone Sodium Succinate 1000 mg/Sodium Chloride 250 ml @ 300 mls/hr DAILY IV 04/12/25 10:00 04/12/25 12:32 300 MLS/HR Pantoprazole Sodium 40 mg DAILY IV 04/12/25 10:00 04/12/25 10:43 40 MG Ondansetron HCl 4 mg Q6HPRN PRN IV 04/11/25 22:30 04/12/25 10:42 4 MG Ceftriaxone Sodium 50 ml @ 100 mls/hr DAILY@09 IV 04/13/25 09:00 Azithromycin 250 ml @ 125 mls/hr DAILY IV 04/13/25 10:00 Lorazepam 1 mg Q6HP PRN IV 04/12/25 14:00 04/13/25 02:19 1 MG Hydromorphone HCl 0.5 mg Q4HPRN PRN IV 04/12/25 14:15 04/12/25 14:54 0.5 MG Lactated Ringer's 1,000 ml @ 60 mls/hr [id number] IV 04/12/25 15:00 04/13/25 07:58 60 MLS/HR Ergocalciferol 50,000 unit Q7D PO 04/12/25 20:15 04/12/25 21:40 50,000 UNIT Enoxaparin Sodium 40 mg DAILY SC 04/13/25 10:00 objective General: the patient is well developed and nourished. No acute distress. MENTAL STATUS: Subjective SPEECH, LANGUAGE, HIGHER CORTICAL FUNCTION: no aphasia or dysathria. CRANIAL NERVES: Pupils are equal, round and reactive. EOMs full and conjugate. No nystagmus. Facial sensation intact in all three divisions bilaterally. Mandibular strength intact. Facial muscles symmetrical and strength intact. SENSATION: Sensation to touch and pinprick is normal. MOTOR: Normal tone in the upper and lower extremity. Normal muscle bulk. No fasciculations. Constant mild tremor in torso and both upper extremities. Muscle strength of the major groups in the extremities is 5/5. REFLEXES: Deep tendon reflexes are symmetrical. No pathological reflexes. CEREBELLAR/COORDINATION: Finger to nose is normal bilaterally. GAIT/STATION: Unremarkable laboratory and microbiology Laboratory Tests 04/13/25 05:53 Test 04/13/25 05:53 Range/Units Serum Glucose 146 H 74-106 mg/dL Problem List Reported history of multiple sclerosis Diffuse body pain/MS exacerbation Tremors, etiology unclear Assessment/Plan Monitoring Supportive treatment IV Solu-Medrol 1000 mg IV daily x5, 1st dose: 04/12/2025 GI prophylaxis/pantoprazole DVT prophylaxis/Lovenox More recommendation per clinical course This medical document was created using an electronic medical record system with [employer] computerized dictation system. Although this document has been carefully reviewed, there may still be some phonetic and typographical errors. These areas are purely typographical due to imperfections of the software programs, and do not reflect any compromise in the patient's medical care. Prognosis poor Plan discussed with: Patient, Other Total Time (mins): 35 ALICE FONTENOT MD Apr 13, 2025 09:17
[2025-04-13] MEDS: ENOXAPARIN SOD 40 MG/0.4 ML SYRINGE SC SCH (10:01)
[2025-04-13] MEDS: AZITHROMYCIN 500MG/250ML 250 ML IV SCH (10:01)
--- NOTE | 2025-04-13 12:54 | DVHSR ---
APPROVED REPORT EXAM: LIMITED Two-dimensional and M-mode echocardiogram with Doppler and color Doppler. Blood Pressure: 153/80 mmHg INDICATION shortness of breath, edema RISK FACTORS Height: 5'8, Weight: 269 DIMENSIONS LVDd 4.6 (3.8-5.7cm) LA (2D) 4.0 (1.9-4.0cm) Aortic Root 3.0 (2.0-3.7cm) LVDs 3.1 (2.5-4.0cm) LA (MM) (1.9-4.0cm) Aortic Cusp Exc 1.6 (1.5-2.0cm) EF (%) 62.1 (55-70%) Rt. Atrium 3.7 (1.9-4.0cm) Asc. Aorta 3.5 cm IVSd 0.7 (0.7-1.1cm) RV (D) (1.8-2.4cm) PWd 0.9 (0.7-1.1cm) Mitral Valve Mitral Mitral Stenosis E wave 1.00m/s MV Mean GR. mmHg A wave 0.87m/s MV Peak GR. mmHg E/A ratio 1.1 2D MVA cm2 DECEL Time 160ms PRESS 1/2 Time ms Aortic Valve Aortic Valve Aortic Stenosis V1 1.02m/s AO Mean GR. 6mmHg V2 1.47m/s AO Peak GR. 9mmHg LVOT Diameter 2.1 (1.8-2.4cm) Doppler SACHIN 2.40cm2 Pulmonic Valve V2 1.33m/s Tricuspid Valve TR Velocity 2.44m/s RVSP 24mmHg Other Information Quality : Technically Limited Rhythm : Technically limited study due to patient position.body habitus. Conclusion LVEF is normal at 60-65% Right ventricle size borderline dilated and function is normal
[2025-04-13 13:35] VITALS: BP 137/76; PULSE 112; RESP 20; TEMP 97.5; O2SAT 95
--- NOTE | 2025-04-13 14:57 | DVHPNRES ---
Progress Note Date Seen: Apr 13, 2025 Resident Creating Document: JODI GONZALEZ Medical Necessity Reason Pt with a Central, PICC or Fol: No Subjective Review of Systems Patient seen at bedside. Complaints of back pain radiating to the leg, improved from admission. Ms Lawrence Ogden, a 50-year-old female with past medical history of hypertension, relapsing remitting multiple sclerosis, hiatal hernia presented to the ER accompanied by , with the complaints of intractable back pain radiating to legs with tingling and shock-like sensations for 3 days. She denies any recent trauma. During these flares she denies any visual symptoms. She also reports having urinary frequency, urgency and burning sensation. She described her typical flare up as muscle and back pain. The patient was initially diagnosed with MS in 2002, after an episode of left eye blindness, which resolved after 12 weeks of treatment. Previously she had a neurologist from [facility], recently she is switched her insurance to [employer] [facility] ([employer]), now she has not established with any neurologist. She also has a pressure-like chest pain, no relation with breathing or position change. The patient was having shallow breathing most likely due to pain. She denies any cough, fever or any recent sick contacts. She reports having following up with Dr. Blandon for the hiatal hernia, she is scheduled for endoscopy and colonoscopy with GI in August and September. She has no other complaints at this time. Past medical history: As above Past surgical history: Bilateral salpingo-oophorectomy followed by multiple ectopic pregnancies, umbilical hernia repair, cholecystectomy. Allergies: None Smoking: Cigarettes 15 pack years. Quit Vapes nicotine currently Alcohol: Drinks 3 glasses of beer everyday. Objective vital signs Vital Sign Date Time Temp Pulse Resp B/P (MAP) Pulse Ox O2 Delivery O2 Flow Rate FiO2 04/13/25 10:03 75 20 136/74 04/13/25 09:17 92 04/13/25 08:00 Room Air* 0 21 04/13/25 01:00 97.2 97.2 Total Intake and Output 04/12/25 04/12/25 04/13/25 15:00 23:00 07:00 Intake Total 250 ml 100 ml 150 ml Balance 250 ml 100 ml 150 ml medications Current Medications Medications Dose Ordered Sig/Mable Route Start Time Stop Time Status Last Admin Dose Admin Acetaminophen/ Hydrocodone Bitart 1 tab Q4HP PRN PO 04/11/25 21:30 04/11/25 23:28 1 TAB Methylprednisolone Sodium Succinate 1000 mg/Sodium Chloride 250 ml @ 300 mls/hr DAILY IV 04/12/25 10:00 04/13/25 11:28 300 MLS/HR Pantoprazole Sodium 40 mg DAILY IV 04/12/25 10:00 04/13/25 10:01 40 MG Ondansetron HCl 4 mg Q6HPRN PRN IV 04/11/25 22:30 04/12/25 10:42 4 MG Lorazepam 1 mg Q6HP PRN IV 04/12/25 14:00 04/13/25 02:19 1 MG Hydromorphone HCl 0.5 mg Q4HPRN PRN IV 04/12/25 14:15 04/13/25 09:33 0.5 MG Lactated Ringer's 1,000 ml @ 60 mls/hr [id number] IV 04/12/25 15:00 04/13/25 07:58 60 MLS/HR Ergocalciferol 50,000 unit Q7D PO 04/12/25 20:15 04/12/25 21:40 50,000 UNIT Enoxaparin Sodium 40 mg DAILY SC 04/13/25 10:00 04/13/25 10:01 40 MG Losartan Potassium 50 mg DAILY PO 04/14/25 10:00 Estradiol 0.5 mg Q12HR PO 04/13/25 20:00 Baclofen 10 mg BID PO 04/13/25 22:00 Sucralfate 1 gm BID@0600,2200 PO 04/13/25 22:00 Examination General Appearance: Alert, Oriented X3, Cooperative, Mild distress HEENT: Atraumatic, Mucous membranes moist/pink, internuclear ophthalmoplegia present, no consuelo-anam pupil Respiratory: Clear to auscultation, Normal air movement, No added sounds Cardiovascular: Regular rate, Normal S1, Normal S2, No murmurs Abdominal/ : Active bowel sounds, Soft, no distention, no tenderness Extremities: Bilateral 1+ pedal edema, Normal pulses, No tenderness/swelling Skin: No Significant rash, except past surgical scars Neuro: Normal speech, dermatomes of upper arm decreased sensation, 4/5 upper and lower extremity motor strength Psych/Mental Status: Mental status NL, Mood NL Nurse was there as destination coordinator during examination laboratory and microbiology Laboratory Tests 04/13/25 05:53 Test 04/13/25 05:53 Range/Units Serum Glucose 146 H 74-106 mg/dL Microbiology Date/Time Source Procedure Growth Status 04/12/25 11:41 Nose MRSA Screen - Final Complete Problem List/Assessment/Plan Problem List/Assessment/Plan Assessment and plan Acute exacerbation of MS Intractable back pain due to MS MS triggered by possible pneumonia Ruled out stroke -IV methylprednisolone 1000 mg daily for 5 days -baclofen -tizanidine -IV Dilaudid and IV ondansetron for symptom control -neurology consulted -brain MRI ordered -Head CT ordered -vitamin B12 ordered -carafate -baclofen Chest pain ruled out ACS -EKG: No acute ischemic changes -troponin 3 times WNL Pneumonia due to Gram-positive or Gram-negative organism -IV ceftriaxone -IV azithromycin -ESR and CRP raised Microcytic hypochromic anemia -monitor H&H -stool FOBT sent -iron panel sent Hiatal hernia -IV pantoprazole -follow up outpatient with GI -endoscopy scheduled outpatient GI prophylaxis: Pantoprazole DVT prophylaxis: SCDs Diet: Clear liquid Goals of care discussed Full code status Case discussed with Dr. Mcintyre Plan discussed with: Patient My Orders My Orders Orders - JODI GONZALEZ RESIDENT Procedure Category Date Status Time Losartan Tablet PHA 04/14/25 In Process (Cozaar Tablet) 10:00 Estradiol Tablet PHA 04/13/25 In Process (Estrace Tablet) 20:00 Sucralfate Susp PHA 04/13/25 In Process (Carafate Susp) 22:00 Mechanical Soft Diet DIET 04/13/25 Transmitted Lunch Complete Blood Count LAB 04/14/25 Verified 04:00 Comprehensive LAB 04/14/25 Verified Metabolic Panel 04:00 Date of Service: Apr 13, 2025 Billing Provider: BHAVESH WARREN MD Common Visit Codes: [id number] INP/OBS CARE(HIGH) JODI GONZALEZ RESIDENT Apr 13, 2025 14:57
[2025-04-13 17:00] VITALS: BP 108/73; PULSE 105; RESP 20; TEMP 97; O2SAT 94
[2025-04-13] MEDS: ESTRADIOL 1 MG TAB PO SCH (20:00)
[2025-04-13 21:00] VITALS: BP 134/83; PULSE 91; RESP 20; TEMP 97.7; O2SAT 94
[2025-04-13] MEDS: BACLOFEN 10 MG TAB PO SCH (21:42)
[2025-04-13] MEDS: SUCRALFATE 1 GM/10 ML ORAL SUSP PO SCH (21:42)
[2025-04-14] VITALS (8 sets, daily range): BP systolic 150–164; BP diastolic 84–98; PULSE 83–135; RESP 17–20; TEMP 97.4–98.9; O2SAT 92–96
[2025-04-14 08:19] LABS: Hemoglobin 11.4 g/dL (12.2-16.2); Mean Corpuscular Hemoglobin 26.2 pg (28.0-32.0); Nucleated Red Blood Cells % 0.0 %
[2025-04-14 08:22] LABS: Hematocrit 36.2 % (36.0-46.0); Mean Corpuscular Volume 82.9 fL (80.0-100.0)
[2025-04-14 08:36] LABS: Albumin 4.6 g/dL (3.2-4.8); Alkaline Phosphatase 59 U/L (46-116); Anion Gap 16 (5-15); BUN/Creatinine Ratio 13.6 (10.0-20.0); Blood Urea Nitrogen 18 mg/dL (9-23); Calcium 9.4 mg/dL (8.7-10.4); Carbon Dioxide 22 mmol/L (20-31); Chloride 101 mmol/L (98-107); Potassium 4.2 mmol/L (3.5-5.1); Sodium 139 mmol/L (136-145); Total Protein 7.6 g/dL (5.7-8.2)
[2025-04-14 08:37] LABS: Bilirubin, Total 0.5 mg/dL (0.2-1.0)
[2025-04-14 08:42] LABS: Alanine Aminotransferase 52 U/L (7-40); Glucose 142 mg/dL (74-106)
[2025-04-14] MEDS: LOSARTAN POTASSIUM 50 MG TAB PO SCH (10:55)
--- NOTE | 2025-04-14 13:02 | DVHPNRES ---
Progress Note Date Seen: Apr 14, 2025 Resident Creating Document: JODI GONZALEZ Medical Necessity Reason Pt with a Central, PICC or Fol: No Subjective Review of Systems Patient seen at bedside. Complaints of back pain radiating to the leg, improved from admission. Patient is agitated and confused. Ms Lawrence Ogden, a 50-year-old female with past medical history of hypertension, relapsing remitting multiple sclerosis, hiatal hernia presented to the ER accompanied by , with the complaints of intractable back pain radiating to legs with tingling and shock-like sensations for 3 days. She denies any recent trauma. During these flares she denies any visual symptoms. She also reports having urinary frequency, urgency and burning sensation. She described her typical flare up as muscle and back pain. The patient was initially diagnosed with MS in 2002, after an episode of left eye blindness, which resolved after 12 weeks of treatment. Previously she had a neurologist from [facility], recently she is switched her insurance to [employer], now she has not established with any neurologist. She also has a pressure-like chest pain, no relation with breathing or position change. The patient was having shallow breathing most likely due to pain. She denies any cough, fever or any recent sick contacts. She reports having following up with Dr. Blandon for the hiatal hernia, she is scheduled for endoscopy and colonoscopy with GI in August and September. She has no other complaints at this time. Past medical history: As above Past surgical history: Bilateral salpingo-oophorectomy followed by multiple ectopic pregnancies, umbilical hernia repair, cholecystectomy. Allergies: None Smoking: Cigarettes 15 pack years. Quit Vapes nicotine currently Alcohol: Drinks 3 glasses of beer everyday. Objective vital signs Vital Sign Date Time Temp Pulse Resp B/P (MAP) Pulse Ox O2 Delivery O2 Flow Rate FiO2 04/14/25 10:55 152/88 04/14/25 08:53 97.4 135 19 92 97.4 04/13/25 20:00 Room Air* 0 21 Total Intake and Output 04/13/25 04/13/25 04/14/25 15:00 23:00 07:00 Intake Total 800 ml 800 ml Balance 800 ml 800 ml medications Current Medications Medications Dose Ordered Sig/Mable Route Start Time Stop Time Status Last Admin Dose Admin Acetaminophen/ Hydrocodone Bitart 1 tab Q4HP PRN PO 04/11/25 21:30 04/11/25 23:28 1 TAB Methylprednisolone Sodium Succinate 1000 mg/Sodium Chloride 250 ml @ 300 mls/hr DAILY IV 04/12/25 10:00 04/14/25 10:59 300 MLS/HR Pantoprazole Sodium 40 mg DAILY IV 04/12/25 10:00 04/14/25 10:54 40 MG Ondansetron HCl 4 mg Q6HPRN PRN IV 04/11/25 22:30 04/12/25 10:42 4 MG Lorazepam 1 mg Q6HP PRN IV 04/12/25 14:00 04/14/25 10:52 1 MG Hydromorphone HCl 0.5 mg Q4HPRN PRN IV 04/12/25 14:15 04/14/25 01:21 0.5 MG Lactated Ringer's 1,000 ml @ 60 mls/hr [id number] IV 04/12/25 15:00 04/13/25 07:58 60 MLS/HR Ergocalciferol 50,000 unit Q7D PO 04/12/25 20:15 04/12/25 21:40 50,000 UNIT Enoxaparin Sodium 40 mg DAILY SC 04/13/25 10:00 04/14/25 10:58 40 MG Losartan Potassium 50 mg DAILY PO 04/14/25 10:00 04/14/25 10:55 50 MG Estradiol 0.5 mg Q12HR PO 04/13/25 20:00 04/14/25 10:00 0.5 MG Baclofen 10 mg BID PO 04/13/25 22:00 04/14/25 10:54 10 MG Sucralfate 1 gm BID@0600,2200 PO 04/13/25 22:00 04/14/25 06:00 1 GM Examination General Appearance: Alert, Oriented X3, Cooperative, Mild distress HEENT: Atraumatic, Mucous membranes moist/pink, internuclear ophthalmoplegia present, no consuelo-anam pupil Respiratory: Clear to auscultation, Normal air movement, No added sounds Cardiovascular: Regular rate, Normal S1, Normal S2, No murmurs Abdominal/ : Active bowel sounds, Soft, no distention, no tenderness Extremities: Bilateral 1+ pedal edema, Normal pulses, No tenderness/swelling Skin: No Significant rash, except past surgical scars Neuro: Normal speech, dermatomes of upper arm decreased sensation, 4/5 upper and lower extremity motor strength Psych/Mental Status: Mental status NL, Mood NL Nurse was there as gear room keeper during examination laboratory and microbiology Laboratory Tests 04/14/25 07:50 Test 04/14/25 07:50 Range/Units Serum Glucose 142 H 74-106 mg/dL Microbiology Date/Time Source Procedure Growth Status 04/12/25 11:41 Nose MRSA Screen - Final Complete Problem List/Assessment/Plan Problem List/Assessment/Plan Assessment and plan Acute exacerbation of MS Intractable back pain due to MS MS triggered by possible pneumonia Ruled out stroke -IV methylprednisolone 1000 mg daily for 5 days -baclofen -tizanidine -IV Dilaudid and IV ondansetron for symptom control -neurology consulted -brain MRI ordered -Head CT ordered -vitamin B12 ordered -carafate -baclofen Chest pain ruled out ACS -EKG: No acute ischemic changes -troponin 3 times WNL Pneumonia due to Gram-positive or Gram-negative organism -IV ceftriaxone -IV azithromycin -ESR and CRP raised Microcytic hypochromic anemia -monitor H&H -stool FOBT sent -iron panel sent Hiatal hernia -IV pantoprazole -follow up outpatient with GI -endoscopy scheduled outpatient GI prophylaxis: Pantoprazole DVT prophylaxis: SCDs Diet: Clear liquid Goals of care discussed Full code status Case discussed with Dr. Amado Plan discussed with: Patient Date of Service: Apr 14, 2025 Billing Provider: EDUARDO AMADO DO Common Visit Codes: [id number] INP/OBS CARE(HIGH) JODI GONZALEZ RESIDENT Apr 14, 2025 13:02 EDUARDO AMADO DO Apr 16, 2025 19:09
--- NOTE | 2025-04-14 15:32 | DVH ---
EXAM: CT HEAD WITHOUT CONTRAST INDICATION: ALOC TECHNIQUE: CT of the head without intravenous contrast. Radiation Dose : 1. Head: CT Dose: CTDI volume is 61.52 mGy. Dose-length product is 1073.75 mGy*cm The dose indicators for CT are the volume Computed Tomography (CT) Dose Index (CTDIvol) and the Dose Length Product (DLP), and are measured in units of mGy and mGy-cm, respectively. These indicators are not patient dose, but values generated from the CT scanner acquisition factors. The report includes radiation exposure data for exposures received during this examination. COMPARISON: CT HEAD WITHOUT CONTRAST on DOS: 04/12/25, MRI BRAIN HEAD WO CONTRAST on DOS: 04/12/25 FINDINGS: Motion artifact degrades fine detail. The cerebral parenchyma appears to be normal configuration and attenuation. The ventricles, cisterns, and sulci appear age-appropriate. There is no evidence for acute territorial infarct, hemorrhage, or mass effect. The orbits are normal. The visualized paranasal sinuses and mastoid air cells are clear. The soft tissues and osseous structures appear within normal limits. IMPRESSION: 1. No acute territorial infarct, intracranial hemorrhage, or mass effect. If clinical symptoms persist, MRI may be beneficial in further evaluation. Radiation optimization: All CT scans at this facility use at least one of these dose optimization techniques: automated exposure control mA and/or kV adjustment per patient size (includes targeted exams where dose is matched to clinical indication) or iterative reconstruction.
[2025-04-14] MEDS: FUROSEMIDE 20 MG/2 ML VIAL IV SCH (17:41)
--- NOTE | 2025-04-14 18:30 | DVHPN2 ---
Progress Note - Dictate Date Seen: Apr 14, 2025 Medical Necessity Reason Pt with a Central, PICC or Fol: No Subjective Ms. Lawrence is a 50 years old right-handed female with a history of multiple sclerosis, obesity, she came to the [facility] on 06/12/2024 with a chief complaint of diffuse body pain, which is typical to her MS exacerbation. I have seen and examined the patient, talked to her nurse earlier today and in the evening, I have also talked to other medical staff, she is doing fine now, seen in the bed, her mother, , son were in the room with her, she is alert, oriented to person, place, she knows year, she said this was 16th month of the year. Good social skills, she has no aphasia, her speech is clear but speaks with obvious stuttering He is mentally altered today, she was confused, agitated, she tried to leave the hospital Her relates the patient has normal anxiety, but nothing serious She has mild shaking in the hands She did not have sleep/good sleep in the hospital Urinalysis, 04/11/2025: WBC: 1, urine leukocyte esterase: Negative UDS, 04/11/2025: Negative WBC/HB/PLT/MCV, 04/12/2025: 11.7/11.1/419/83, : 20.4/11.4/497/82.9 ESR, 04/11/2025:33. Na 04/12/2025: 131 BUN/CIWA, 04/12/2025: 6/1.1, 04/14/2025: 18/1.32 GFR, 04/12/2025: 60, 04/13/2025: 79, 04/14/2025: 49 Vitamin B12, 04/12/2025: 297 TSH, 04/12/2025: 0.84 Vitamin-D, 04/12/2025: 18.7 Chest x-ray, 04/11/2025: No acute disease CT head, 04/12/2025: NO ACUTE INTRACRANIAL ABNORMALITY SEEN. CT, 04/14/2025: No acute territorial infarct, intracranial hemorrhage, or mass effect. If clinical symptoms persist, MRI may be beneficial in further evaluation. MRI head, 04/12/2025: 1. No acute infarct, intracranial hemorrhage, mass effect, or hydrocephalus. 2. Periventricular and deep white matter T2/FLAIR hyperintensities are most suggestive of demyelinating disease given the history of multiple sclerosis. If there is concern for active demyelination, MRI of the brain with intravenous contrast is recommended vital signs Vital Sign Date Time Temp Pulse Resp B/P (MAP) Pulse Ox O2 Delivery O2 Flow Rate FiO2 04/14/25 17:42 96 18 150/92 04/14/25 17:00 98.5 92 98.5 04/14/25 08:00 Room Air* 0 21 Total Intake and Output 04/13/25 04/13/25 04/14/25 15:00 23:00 07:00 Intake Total 800 ml 800 ml Balance 800 ml 800 ml medications Current Medications Medications Dose Ordered Sig/Mable Route Start Time Stop Time Status Last Admin Dose Admin Acetaminophen/ Hydrocodone Bitart 1 tab Q4HP PRN PO 04/11/25 21:30 04/11/25 23:28 1 TAB Pantoprazole Sodium 40 mg DAILY IV 04/12/25 10:00 04/14/25 10:54 40 MG Ondansetron HCl 4 mg Q6HPRN PRN IV 04/11/25 22:30 04/12/25 10:42 4 MG Lorazepam 1 mg Q6HP PRN IV 04/12/25 14:00 04/14/25 10:52 1 MG Hydromorphone HCl 0.5 mg Q4HPRN PRN IV 04/12/25 14:15 04/14/25 17:42 0.5 MG Lactated Ringer's 1,000 ml @ 60 mls/hr [id number] IV 04/12/25 15:00 04/13/25 07:58 60 MLS/HR Ergocalciferol 50,000 unit Q7D PO 04/12/25 20:15 04/12/25 21:40 50,000 UNIT Enoxaparin Sodium 40 mg DAILY SC 04/13/25 10:00 04/14/25 10:58 40 MG Losartan Potassium 50 mg DAILY PO 04/14/25 10:00 04/14/25 10:55 50 MG Estradiol 0.5 mg Q12HR PO 04/13/25 20:00 04/14/25 10:00 0.5 MG Sucralfate 1 gm BID@0600,2200 PO 04/13/25 22:00 04/14/25 06:00 1 GM Furosemide 20 mg DAILY IV 04/14/25 15:00 04/14/25 17:41 20 MG objective General: the patient is well developed and nourished. No acute distress. MENTAL STATUS: Subjective SPEECH, LANGUAGE, HIGHER CORTICAL FUNCTION: no aphasia, subjective. CRANIAL NERVES: Pupils are equal, round and reactive. EOMs full and conjugate. No nystagmus. Facial sensation intact in all three divisions bilaterally. Mandibular strength intact. Facial muscles symmetrical and strength intact. SENSATION: Sensation to touch and pinprick is normal. MOTOR: Normal tone in the upper and lower extremity. Normal muscle bulk. No fasciculations. Constant mild tremor in torso and both upper extremities. Muscle strength of the major groups in the extremities is 5/5. REFLEXES: Deep tendon reflexes are symmetrical. No pathological reflexes. CEREBELLAR/COORDINATION: Finger to nose is normal bilaterally. GAIT/STATION: Unremarkable laboratory and microbiology Laboratory Tests 04/14/25 07:50 Test 04/14/25 07:50 Range/Units Serum Glucose 142 H 74-106 mg/dL Problem List Reported history of multiple sclerosis Diffuse body pain/MS exacerbation Tremors, etiology unclear, better today Vitamin-D deficiency Altered mental status/agitation on 04/14/2025, Steroid psychosis Metabolic encephalopathy Rule out other etiology Leukocytosis Assessment/Plan Monitoring Supportive treatment IV Solu-Medrol 1000 mg IV daily x5, 1st dose: 04/12/2025 (resume, okay to discontinue if the patient is agitated artery infusion) Ativan for anxiety Restoril 15 mg HS p.r.n. for insomnia GI prophylaxis/pantoprazole DVT prophylaxis/Lovenox More recommendation per clinical course This medical document was created using an electronic medical record system with [employer] dictation system. Although this document has been carefully reviewed, there may still be some phonetic and typographical errors. These areas are purely typographical due to imperfections of the software programs, and do not reflect any compromise in the patient's medical care. Prognosis poor Plan discussed with: Patient, Spouse, Son, Other Total Time (mins): 40 ALICE FONTENOT MD Apr 14, 2025 18:30
[2025-04-14] MEDS: MELATONIN 5 MG TAB PO ONE (21:41)
[2025-04-15] VITALS (7 sets, daily range): BP systolic 120–157; BP diastolic 82–89; PULSE 83–115; RESP 16–19; TEMP 97.6–98.3; O2SAT 94–95
[2025-04-15 07:10] LABS: Hemoglobin 10.7 g/dL (12.2-16.2)
[2025-04-15 07:13] LABS: Hematocrit 33.9 % (36.0-46.0); Mean Corpuscular Hemoglobin 26.2 pg (28.0-32.0); Mean Corpuscular Volume 83.2 fL (80.0-100.0); Nucleated Red Blood Cells % 0.1 %
[2025-04-15 07:28] LABS: Albumin 4.0 g/dL (3.2-4.8); Alkaline Phosphatase 50 U/L (46-116); Anion Gap 14 (5-15); BUN/Creatinine Ratio 13.6 (10.0-20.0); Bilirubin, Total 0.6 mg/dL (0.2-1.0); Blood Urea Nitrogen 14 mg/dL (9-23); Carbon Dioxide 24 mmol/L (20-31); Chloride 98 mmol/L (98-107); Potassium 3.7 mmol/L (3.5-5.1); Total Protein 6.6 g/dL (5.7-8.2)
[2025-04-15 07:31] LABS: Alanine Aminotransferase 95 U/L (7-40); Calcium 8.7 mg/dL (8.7-10.4); Glucose 136 mg/dL (74-106); Sodium 136 mmol/L (136-145)
[2025-04-15] MEDS: methylPREDNISolone SOD SUCC 1,000 MG in SODIUM CHL 0.9% 250 ML IV SCH (10:00)
--- NOTE | 2025-04-15 15:31 | DVHPNRES ---
Progress Note Date Seen: Apr 15, 2025 Resident Creating Document: JODI GONZALEZ Medical Necessity Reason Pt with a Central, PICC or Fol: No Subjective Review of Systems Patient seen at bedside. Patient still confused, improved from yesterday. Neurology following. Restarted methylprednisolone. Repeat CT normal. Started on temazepam for insomnia. Ms Lawrence Ogden, a 50-year-old female with past medical history of hypertension, relapsing remitting multiple sclerosis, hiatal hernia presented to the ER accompanied by , with the complaints of intractable back pain radiating to legs with tingling and shock-like sensations for 3 days. She denies any recent trauma. During these flares she denies any visual symptoms. She also reports having urinary frequency, urgency and burning sensation. She described her typical flare up as muscle and back pain. The patient was initially diagnosed with MS in 2002, after an episode of left eye blindness, which resolved after 12 weeks of treatment. Previously she had a neurologist from [facility], recently she is switched her insurance to [employer], now she has not established with any neurologist. She also has a pressure-like chest pain, no relation with breathing or position change. The patient was having shallow breathing most likely due to pain. She denies any cough, fever or any recent sick contacts. She reports having following up with Dr. Blandon for the hiatal hernia, she is scheduled for endoscopy and colonoscopy with GI in August and September. She has no other complaints at this time. Past medical history: As above Past surgical history: Bilateral salpingo-oophorectomy followed by multiple ectopic pregnancies, umbilical hernia repair, cholecystectomy. Allergies: None Smoking: Cigarettes 15 pack years. Quit Vapes nicotine currently Alcohol: Drinks 3 glasses of beer everyday. Objective vital signs Vital Sign Date Time Temp Pulse Resp B/P (MAP) Pulse Ox O2 Delivery O2 Flow Rate FiO2 04/15/25 09:00 98.2 115 16 120/89 (99) 94 98.2 04/14/25 19:30 Room Air* 0 21 Total Intake and Output 04/14/25 04/14/25 04/15/25 15:00 23:00 07:00 Intake Total 950 ml 240 ml Balance 950 ml 240 ml medications Current Medications Medications Dose Ordered Sig/Mable Route Start Time Stop Time Status Last Admin Dose Admin Acetaminophen/ Hydrocodone Bitart 1 tab Q4HP PRN PO 04/11/25 21:30 04/11/25 23:28 1 TAB Pantoprazole Sodium 40 mg DAILY IV 04/12/25 10:00 04/14/25 10:54 40 MG Ondansetron HCl 4 mg Q6HPRN PRN IV 04/11/25 22:30 04/12/25 10:42 4 MG Lorazepam 1 mg Q6HP PRN IV 04/12/25 14:00 04/15/25 09:24 1 MG Hydromorphone HCl 0.5 mg Q4HPRN PRN IV 04/12/25 14:15 04/14/25 17:42 0.5 MG Lactated Ringer's 1,000 ml @ 60 mls/hr [id number] IV 04/12/25 15:00 04/13/25 07:58 60 MLS/HR Ergocalciferol 50,000 unit Q7D PO 04/12/25 20:15 04/12/25 21:40 50,000 UNIT Enoxaparin Sodium 40 mg DAILY SC 04/13/25 10:00 04/14/25 10:58 40 MG Losartan Potassium 50 mg DAILY PO 04/14/25 10:00 04/14/25 10:55 50 MG Estradiol 0.5 mg Q12HR PO 04/13/25 20:00 04/14/25 10:00 0.5 MG Sucralfate 1 gm BID@0600,2200 PO 04/13/25 22:00 04/15/25 05:59 1 GM Furosemide 20 mg DAILY IV 04/14/25 15:00 04/14/25 17:41 20 MG Methylprednisolone Sodium Succinate 1000 mg/Sodium Chloride 250 ml @ 250 mls/hr DAILY IV 04/15/25 10:00 04/16/25 23:00 Temazepam 15 mg HS PRN PO 04/14/25 22:00 Examination General Appearance: Alert, Oriented X3, Cooperative, Mild distress HEENT: Atraumatic, Mucous membranes moist/pink, internuclear ophthalmoplegia present, no consuelo-anam pupil Respiratory: Clear to auscultation, Normal air movement, No added sounds Cardiovascular: Regular rate, Normal S1, Normal S2, No murmurs Abdominal/ : Active bowel sounds, Soft, no distention, no tenderness Extremities: Bilateral 1+ pedal edema, Normal pulses, No tenderness/swelling Skin: No Significant rash, except past surgical scars Neuro: Normal speech, dermatomes of upper arm decreased sensation, 4/5 upper and lower extremity motor strength Psych/Mental Status: Mental status NL, Mood NL Nurse was there as plant superintendent during examination laboratory and microbiology Laboratory Tests 04/15/25 05:45 Test 04/15/25 05:45 Range/Units Serum Glucose 136 H 74-106 mg/dL Microbiology Date/Time Source Procedure Growth Status 04/12/25 11:41 Nose MRSA Screen - Final Complete Problem List/Assessment/Plan Problem List/Assessment/Plan Assessment and plan Acute exacerbation of MS Intractable back pain due to MS MS triggered by possible pneumonia Ruled out stroke -IV methylprednisolone 1000 mg daily for 5 days -baclofen -tizanidine -IV Dilaudid and IV ondansetron for symptom control -neurology consulted -brain MRI ordered -Head CT ordered -vitamin B12 ordered -carafate -baclofen Repeat CT normal Temazepam for insomnia Held methylprednisolone, restarted Chest pain ruled out ACS -EKG: No acute ischemic changes -troponin 3 times WNL Pneumonia due to Gram-positive or Gram-negative organism -IV ceftriaxone -IV azithromycin -ESR and CRP raised Microcytic hypochromic anemia -monitor H&H -stool FOBT sent -iron panel sent Hiatal hernia -IV pantoprazole -follow up outpatient with GI -endoscopy scheduled outpatient GI prophylaxis: Pantoprazole DVT prophylaxis: SCDs Diet: Clear liquid Goals of care discussed Full code status Case discussed with Dr. Amado Plan discussed with: Patient My Orders My Orders Orders - JODI GONZALEZ Procedure Category Date Status Time Complete Blood Count LAB 04/16/25 Verified 04:00 Comprehensive LAB 04/16/25 Verified Metabolic Panel 04:00 Date of Service: Apr 15, 2025 Billing Provider: EDUARDO AMADO DO Common Visit Codes: [id number] INP/OBS CARE(HIGH) JODI GONZALEZ RESIDENT Apr 15, 2025 15:31 EDUARDO AMADO DO Apr 16, 2025 19:09
[2025-04-15] MEDS: PANTOPRAZOLE 40 MG/10 ML VIAL INJ IV ONE (17:45)
[2025-04-15] MEDS: TEMAZEPAM 15 MG CAP PO PRN (21:27)
[2025-04-16] VITALS (8 sets, daily range): BP systolic 135–147; BP diastolic 80–93; PULSE 90–114; RESP 15–18; TEMP 36.5; O2SAT 95–98
[2025-04-16] MEDS: DOCUSATE SOD 100 MG CAP PO PRN (05:04)
[2025-04-16 06:15] LABS: Hemoglobin 10.2 g/dL (12.2-16.2)
[2025-04-16 06:16] LABS: Hematocrit 32.0 % (36.0-46.0); Mean Corpuscular Hemoglobin 26.4 pg (28.0-32.0); Mean Corpuscular Volume 82.9 fL (80.0-100.0); Nucleated Red Blood Cells % 0.1 %
[2025-04-16 06:31] LABS: Albumin 3.4 g/dL (3.2-4.8); Anion Gap 10 (5-15); BUN/Creatinine Ratio 18.5 (10.0-20.0); Bilirubin, Total 0.4 mg/dL (0.2-1.0); Blood Urea Nitrogen 17 mg/dL (9-23); Carbon Dioxide 27 mmol/L (20-31); Chloride 100 mmol/L (98-107); Glucose 91 mg/dL (74-106); Sodium 137 mmol/L (136-145)
[2025-04-16 06:32] LABS: Alanine Aminotransferase 129 U/L (7-40); Alkaline Phosphatase 40 U/L (46-116); Calcium 8.1 mg/dL (8.7-10.4); Potassium 3.4 mmol/L (3.5-5.1); Total Protein 5.6 g/dL (5.7-8.2)
--- NOTE | 2025-04-16 16:04 | DVHDS2 ---
Discharge Summary Date of Admission Apr 11, 2025 at 21:27 Date of Discharge: Apr 16, 2025 Labs/Diagnostic Data: Laboratory Results Test 04/16/25 05:42 04/12/25 05:28 04/12/25 05:25 04/12/25 03:30 White Blood Count 12.0 10^3/uL (4.4-10.8) Red Blood Count 3.86 10^6/uL (4.0-5.20) Hemoglobin 10.2 g/dL (12.2-16.2) Hematocrit 32.0 % (36.0-46.0) Mean Corpuscular Volume 82.9 fL (80.0-100.0) Mean Corpuscular Hemoglobin 26.4 pg (28.0-32.0) Mean Corpuscular Hemoglobin Concent 31.8 g/dL (32.0-36.0) Red Cell Distribution Width 17.6 % (11.8-14.3) Platelet Count 350 10^3/uL (140-450) Mean Platelet Volume 7.2 fL (6.9-10.8) Neutrophils (%) (Auto) 70.6 % (37.0-80.0) Lymphocytes (%) (Auto) 18.2 % (10.0-50.0) Monocytes (%) (Auto) 10.8 % (0.0-12.0) Eosinophils (%) (Auto) 0.3 % (0.0-7.0) Basophils (%) (Auto) 0.1 % (0.0-2.0) Neutrophils # (Auto) 8.5 10 ^3/uL (1.6-8.6) Lymphocytes # (Auto) 2.2 10 ^3/uL (0.4-5.4) Monocytes # (Auto) 1.3 10 ^3/uL (0-1.3) Eosinophils # (Auto) 0 10 ^3/uL (0-0.8) Basophils # (Auto) 0 10 ^3/uL (0-0.2) Nucleated Red Blood Cells 0.1 % Sodium Level 137 mmol/L (136-145) Potassium Level 3.4 mmol/L (3.5-5.1) Chloride Level 100 mmol/L (98-107) Carbon Dioxide Level 27 mmol/L (20-31) Anion Gap 10 (5-15) Blood Urea Nitrogen 17 mg/dL (9-23) Creatinine 0.92 mg/dL (0.550-1.02) Glomerular Filtration Rate Calc 75 mL/min (>90) BUN/Creatinine Ratio 18.5 (10.0-20.0) Serum Glucose 91 mg/dL (74-106) Calcium Level 8.1 mg/dL (8.7-10.4) Total Bilirubin 0.4 mg/dL (0.2-1.0) Aspartate Amino Transferase (AST) 82 U/L (13-40) Alanine Aminotransferase (ALT) 129 U/L (7-40) Alkaline Phosphatase 40 U/L (46-116) Total Protein 5.6 g/dL (5.7-8.2) Albumin 3.4 g/dL (3.2-4.8) Iron Level 25 ug/dL (50-170) Total Iron Binding Capacity 425 ug/dL (250-425) Percent Iron Saturation 5.9 % (15-50) Vitamin B12 Level 297 pg/mL (211-911) Vitamin D 25-Hydroxy 18.7 ng/mL (30.0-100) Thyroid Stimulating Hormone (TSH) 0.84 uIU/mL (0.55-4.78) Magnesium Level 1.9 mg/dL (1.6-2.6) Influenza Type A Antigen Negative (Negative) Influenza Type B Antigen Negative (Negative) SARS-CoV-2 Antigen (Rapid) Negative (NEGATIVE) Test 04/11/25 15:00 04/11/25 14:45 Erythrocyte Sedimentation Rate 33 mm/hr (0-20) Troponin I High Sensitivity 4 ng/L (</=34) C-Reactive Protein High Sensitivity 1.38 mg/dL (<1.0) B-Type Natriuretic Peptide 110.11 pg/mL (0-100) Urine Color Light-yellow (Yellow) Urine Clarity Turbid (Clear) Urine pH 6.5 (5.0-9.0) Urine Specific [place] 1.012 (1.001-1.035) Urine Protein Negative (Negative) Urine Ketones Negative (Negative) Urine Blood Negative /uL (Negative) Urine Nitrite Negative (Negative) Urine Bilirubin Negative (Negative) Urine Urobilinogen Normal mg/dL (Negative) Urine Leukocyte Esterase Negative /uL (Negative) Urine RBC 1 /hpf (0 - 4) Urine Microscopic WBC 1 /HPF (0-5) Urine Squamous Epithelial Cells Mod /hpf (<5) Urine Bacteria Few /hpf (None Seen) Urine Hyaline Casts Few /lpf (0 - 2) Urine Glucose Normal mg/dL (Normal) Urine Test Negative (Negative) Urine Opiates Screen Neg (NEGATIVE) Urine Fentanyl Screen Neg (NEGATIVE) Urine Barbiturates Screen Neg (NEGATIVE) Urine Phencyclidine Screen Neg (NEGATIVE) Urine Amphetamines Screen Neg (NEGATIVE) Urine Benzodiazepines Screen Neg (NEGATIVE) Urine Cocaine Screen Neg (NEGATIVE) Urine Cannabinoids Screen Neg (NEGATIVE) Other Laboratory Tests 04/16/25 05:42 Brief Hx & Hospital Course: Acute exacerbation of MS Intractable back pain due to MS MS triggered by possible pneumonia Ruled out stroke -IV methylprednisolone 1000 mg daily for 5 days -baclofen -tizanidine -IV Dilaudid and IV ondansetron for symptom control -neurology consulted -brain MRI ordered -Head CT ordered -vitamin B12 ordered -carafate -baclofen Repeat CT normal Temazepam for insomnia Held methylprednisolone, restarted Chest pain ruled out ACS -EKG: No acute ischemic changes -troponin 3 times WNL Pneumonia due to Gram-positive or Gram-negative organism -IV ceftriaxone -IV azithromycin -ESR and CRP raised Microcytic hypochromic anemia -monitor H&H -stool FOBT sent -iron panel sent Hiatal hernia -IV pantoprazole -follow up outpatient with GI -endoscopy scheduled outpatient pt discharged to home with Lasix for leg swelling and medro dose magalis GI prophylaxis: Pantoprazole DVT prophylaxis: SCDs Diet: Clear liquid Condition at Discharge: Fair Final Diagnosis/Problems List MS flare Discharge Disposition: Home Discharge Instruct/Medications Scheduled Baclofen (Baclofen), 20 TAB PO TID, (Reported) Estradiol (Estradiol), 1 MG PO DAILY, (Reported) Estradiol (Estradiol), 0.5 MG PO Q12HR Famotidine (Famotidine), 40 MG PO DAILY, (Reported) Furosemide (Lasix), 40 MG PO DAILY Losartan Potassium (Losartan Potassium), 50 MG PO DAILY, (Reported) Losartan Potassium (Losartan Potassium), 50 MG PO DAILY Methylprednisolone (Medrol Dosepak), 4 MG PO UD Norethin Acet & Estrad-Fe (Microgestin Fe), 1 TAB PO DAILY, (Reported) Omeprazole (Gnp Omeprazole), 1 TAB PO DAILY, (Reported) Scheduled PRN Ibuprofen (Ibuprofen), 600 MG PO Q8HPRN PRN for PAIN SCALE 1 THRU 6, (Reported) Tizanidine Hydrochloride (Tizanidine Hcl), 4 CAP PO Q8HPRN PRN, (Reported) Discharge Statement: "Patient was advised to return to the ER or call 911 if any headaches, dizziness, shortness of breath, chest pain, abdominal pain, bleeding, fevers, or worsening of medical condition. Patient was counseled about treatment plan, medications, possible side effects, patientverbalized understanding. All questions were answered to the best of my ability. This discharge took greater then 30 minutes in planning, reviewing documentation, counseling the patient, and discussing with other team members." ASSESSMENT ASSESSMENT Assessment Date of Service: Apr 16, 2025 Billing Provider: EDUARDO AMADO DO Common Visit Codes: [id number] DISCH DAY >30min EDUARDO AMADO DO Apr 16, 2025 16:03
[2025-04-16] MEDS ORDERED: METH4PAK PO (19:08)
[2025-04-16] MEDS ORDERED: FURO1TAB31 PO (19:08)
[2025-04-16] MEDS ORDERED: ESTR1TAB6 PO (19:08)
[2025-04-16] MEDS ORDERED: LOSA-534 PO (19:08)
== END 2025-04-16 20:30 | disposition home or self-care (01) | DRG 58 ==
LOC: ER 12:50 → OVERFLOW 21:27 → CENTRAL 04-13 14:13
PROVIDERS: ADMIT Internal Medicine; ATTEND Internal Medicine
DX: G35.D Multiple sclerosis, unspecified (principal); J15.69 Pneumonia due to other Gram-negative bacteria; J15.9 Unspecified bacterial pneumonia; D50.9 Iron deficiency anemia, unspecified; I10 Essential (primary) hypertension; Z20.822 Contact with and (suspected) exposure to COVID-19; K44.9 Diaphragmatic hernia without obstruction or gangrene; G47.00 Insomnia, unspecified; F41.9 Anxiety disorder, unspecified; Z90.49 Acquired absence of other specified parts of digestive tract; Z87.891 Personal history of nicotine dependence; Z80.6 Family history of leukemia
CPT/HCPCS: 36415; 70450; 70551; 71045; 80048; 80053; 80307; 81001; 81025; 82306; 82607; 83540; 83550; 83735; 83880; 84443; 84484; 85025; 85652; 86141; 87081; 87426; 87804; 93005; 93306; 96365; 96372; 96375; G0378; J2405; J2470

== ENCOUNTER 2025-05-01 13:18 | Emergency (ER) | payer BC ==
[~2025-05-01] VITALS: Ht 172.7 cm; Wt 119.9 kg
[~2025-05-01 13:18] MED LIST: BACL20TA PO; ESTR1TAB6 PO; FAMO-12 PO; FURO1TAB31 PO; IBUP-1454 PO; LOSA-534 PO; METH4PAK PO; NORE-79 PO; OMEP20TA PO; TIZA4CAP7 PO
--- NOTE | 2025-05-01 14:39 | ED.PDOC ---
History of Present Illness HPI Comments 50 year old female presents to the ED with a chief complaint of dizziness onset 3 days. Patient states she has been experiencing dizziness as well as shortness of breath, back pain and bilateral legs pain for the past 3 days. Patient was hospitalized at [facility] 04/11/25, with a diagnosis of pneumonia. Since being discharged, patient noticed symptoms worsening. Denies fever, chills, headache, chest pain, nausea, vomiting, diarrhea, abdominal pain, numbness/tingling. No other symptoms or modifying factors present at this time. Chief Complaint: Dizziness Time Seen by MD: 14:35 Reviewed Notes: Medications, Allergies Allergies: Coded Allergies: NO KNOWN ALLERGIES (Unverified , 04/11/25) Home Meds Active Scripts Methylprednisolone (Medrol Dosepak) 4 Mg Benoit, 4 MG PO UD, #21 TAB UAD Prov:EDUARDO AMDAO DO 04/16/25 Furosemide (Lasix) 40 Mg Tab, 40 MG PO DAILY for 20 Days, #20 TAB Prov:EDUARDO AMADO DO 04/16/25 Losartan Potassium (Losartan Potassium) 50 Mg Tab, 50 MG PO DAILY for 30 Days, #30 TAB 3 Refills Prov:EDUARDO AMADO DO 04/16/25 Estradiol (Estradiol) 1 Mg Tab, 0.5 MG PO Q12HR for 30 Days, #30 TAB 0 Refills Prov:EDUARDO AMADO DO 04/16/25 Reported Medications Estradiol (Estradiol) 1 Mg Tab, 1 MG PO DAILY, MG 04/12/25 Losartan Potassium (Losartan Potassium) 50 Mg Tab, 50 MG PO DAILY for 30 Days, MG 04/12/25 Omeprazole (Gnp Omeprazole) 20 Mg Tab, 1 TAB PO DAILY, #90 TAB 1 Refill 04/12/25 Norethin Acet & Estrad-Fe (Microgestin Fe) Fe / Tab, 1 TAB PO DAILY, #28 TAB 11 Refills 04/12/25 Ibuprofen (Ibuprofen) 600 Mg Tab, 600 MG PO Q8HPRN PRN for PAIN SCALE 1 THRU 6, MG 0 Refills 04/12/25 Famotidine (Famotidine) 20 Mg Tab, 40 MG PO DAILY for 30 Days, MG 04/12/25 Tizanidine Hydrochloride (TIZANIDINE HCL) 4 Mg Cap, 4 CAP PO Q8HPRN PRN 04/12/25 Baclofen (Baclofen) 20 Mg Tab, 20 TAB PO TID 04/12/25 Information Source: Patient Mode of Arrival: Ambulatory Severity: Moderate Timing: Days Duration: Since onset Prehospital treatment: None Past Medical History PAST MEDICAL HISTORY: HTN Past Medical History (Other): MS 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 LEAD SOFTWARE TEST ENGINEER History Family History Family History: Reviewed,noncontributory to illness, No family hx of Cancer, No family hx of DM, No family hx of Heart ricarda, No family hx of HTN, No family hx ofKidney ricarda, No family hx of Liver ricarda, No family hx of Lung ricarda, No family hx of Stroke Social History Smoker: Non-Smoker Alcohol: Denies ETOH Use Drugs: Denies Drug Use Lives In: Home Constitutional: reports: others (generalized body pain); denies: chills, diaphoresis, fatigue, fever, malaise, sweats, weakness EENTM: denies: blurred vision, double vision, ear bleeding, ear discharge, ear drainage, ear pain, ear ringing, eye pain, eye redness, hearing loss, mouth pain, mouth swelling, nasal discharge, nose bleeding, nose congestion, nose pain, photophobia, tearing, throat pain, throat swelling, voice changes, others Respiratory: denies: cough, hemoptysis, orthopnea, SOB at rest, shortness of breath, SOB with excertion, stridor, wheezing, others Cardiovascular: denies: chest pain, dizzy spells, diaphoresis, Dyspnea on exertion, edema, irregular heart beat, left arm pain, lightheadedness, palpitations, PND, syncope, others Gastrointestinal: denies: abdomen distended, abdominal pain, blood streaked bowels, constipated, diarrhea, dysphagia, difficulty swallowing, hematemesis, melena, nausea, poor appetite, poor fluid intake, rectal bleeding, rectal pain, vomiting, others Genitourinary: denies: abnormal vagina bleeding, burning, dyspareunia, dysuria, flank pain, frequency, hematuria, incontinence, pain, , vagina discharge, urgency, others Neurological: reports: dizziness; denies: fainting, headache, left sided numbness, left sided weakness, numbness, paresthesia, pre-existing deficit, right sided numbness, right sided weakness, seizure, speech problems, tingling, tremors, weakness, others Musculoskeletal: reports: back pain; denies: gout, joint pain, joint swelling, muscle pain, muscle stiffness, neck pain, others Integumetry: denies: bruises, change in color, change in hair/nails, dryness, laceration, lesions, lumps, rash, wounds, others Allergic/Immunocompromised: denies: Difficulty Healing, Frequent Infections, Hives, Itching, others Hematologic/Lymphatic: denies: anemia, blood clots, easy bleeding, easy bruising, swollen glands, others Endocrine: denies: excessive hunger, excessive sweating, excessive thirst, excessive urination, flushing, intolerance to cold, intolerance to heat, unexplained weight gain, unexplained weight loss, others Psychiatric: denies: anxiety, bipolar disorder, depression, hopeless, panic disorder, schizophrenia, sleepless, suicidal, others All Other Systems: Reviewed and Negative Physical Exam General Appearance: Moderate Distress, Normal HEENT: Normal ENT Inspection, Pharynx Normal, TMs Normal Neck: Full Range of Motion, Non-Tender, Normal, Normal Inspection Respiratory: Chest Non-Tender, Lungs Clear, No Accessory Muscle Use, No Respiratory Distress, Normal Breath Sounds Cardiovascular: No Edema, No JVD, No Murmur, No Gallop, Normal Peripheral Pulses, Regular Rate/Rhythm Breast Exam: Deferred Gastrointestinal: No Organomegaly, Non Tender, No Pulsatile Mass, Normal Bowel Sounds, Soft Genitalia: Deferred Pelvic: Deferred Rectal: Deferred Extremities: No calf tenderness, Normal capillary refill, Normal inspection, Normal range of motion, Non-tender, No pedal edema Musculoskeletal : Apperance: Normal Neurologic: Alert, oracle etl developer II-XII nml as Tested, No Motor Deficits, Normal Affect, Normal Mood, No Sensory Deficits Cerebellar Function: Normal Reflexes: Normal Skin: Dry, Normal Color, Warm Peripheral Pulses: 3+ Radial (R), 3+ Radial (L) Lymphatic: No Adenopathy Was a procedure done? Was a procedure done?: No Differential Dx Considerations may include: Anemia Electrolyte imbalance X-Ray, Labs, Meds, VS Vital Signs Date Time Temp Pulse Resp B/P (MAP) Pulse Ox O2 Delivery O2 Flow Rate FiO2 05/01/25 16:32 99 22 155/92 (113) 96 05/01/25 13:32 122 05/01/25 13:25 97.7 136 22 165/88 95 97.7 Lab Test 05/01/25 15:53 05/01/25 14:58 05/01/25 14:54 Range/Units Lactic Acid Level 1.3 0.4-2.0 mmol/L White Blood Count 13.7 H 4.4-10.8 10^3/uL Red Blood Count 4.40 4.0-5.20 10^6/uL Hemoglobin 11.8 L 12.2-16.2 g/dL Hematocrit 36.5 36.0-46.0 % Mean Corpuscular Volume 83.0 80.0-100.0 fL Mean Corpuscular Hemoglobin 26.9 L 28.0-32.0 pg Mean Corpuscular Hemoglobin Concent 32.3 32.0-36.0 g/dL Red Cell Distribution Width 18.6 H 11.8-14.3 % Platelet Count 386 140-450 10^3/uL Mean Platelet Volume 7.5 6.9-10.8 fL Neutrophils (%) (Auto) 84.2 H 37.0-80.0 % Lymphocytes (%) (Auto) 10.1 10.0-50.0 % Monocytes (%) (Auto) 4.7 0.0-12.0 % Eosinophils (%) (Auto) 0.3 0.0-7.0 % Basophils (%) (Auto) 0.7 0.0-2.0 % Neutrophils # (Auto) 11.6 H 1.6-8.6 10 ^3/uL Lymphocytes # (Auto) 1.4 0.4-5.4 10 ^3/uL Monocytes # (Auto) 0.6 0-1.3 10 ^3/uL Eosinophils # (Auto) 0 0-0.8 10 ^3/uL Basophils # (Auto) 0.1 0-0.2 10 ^3/uL Nucleated Red Blood Cells 0.1 % Sodium Level 137 136-145 mmol/L Potassium Level 3.3 L 3.5-5.1 mmol/L Chloride Level 100 98-107 mmol/L Carbon Dioxide Level 24 20-31 mmol/L Anion Gap 13 5-15 Blood Urea Nitrogen 9 9-23 mg/dL Creatinine 0.90 0.550-1.02 mg/dL Glomerular Filtration Rate Calc 77 >90 mL/min BUN/Creatinine Ratio 10.0 10.0-20.0 Serum Glucose 111 H 74-106 mg/dL Calcium Level 9.4 8.7-10.4 mg/dL Urine Color Light-yellow Yellow Urine Clarity Turbid H Clear Urine pH 7.0 5.0-9.0 Urine Specific Bonham 1.007 1.001-1.035 Urine Protein Negative Negative Urine Ketones Negative Negative Urine Blood Negative Negative /uL Urine Nitrite Negative Negative Urine Bilirubin Negative Negative Urine Urobilinogen Normal Negative mg/dL Urine Leukocyte Esterase Negative Negative /uL Urine RBC 1 0 - 4 /hpf Urine Microscopic WBC < 1 0-5 /HPF Urine Squamous Epithelial Cells Mod <5 /hpf Urine Bacteria None seen None Seen /hpf Urine Hyaline Casts Few 0 - 2 /lpf Urine Glucose Normal Normal mg/dL Current Medications Medications (Trade) Dose Ordered Sig/Mable Route Start Time Stop Time Status Last Admin Sodium Chloride 1,000 ml @ 1,000 mls/hr Q1H ONCE IV 05/01/25 15:45 05/01/25 16:44 DC 05/01/25 16:55 Patient alert. Came in because of generalized body aches. Vitals stable. Answering questions. Urinalysis within normal limits. WBC slightly elevated. Abdomen is soft nontender. Blood pressure elevated. WBC elevation could be from steroids. She was given steroids last time she was admitted in this hospital. Establish intravenous access. Was given fluids. Continue monitoring. Time of 1ST Reevaluation: 15:05 Reevaluation 1ST: Unchanged Patient Education/Counseling: Diagnosis, Treatment, Prognosis Family Education/Counseling: No Family Present SEPSIS Sepsis Screen Date sepsis recognized/suspect: May 01, 2025 Time Sepsis recognized/suspect: 1325 Recent Procedure: No On Antibiotic Therapy: No Respiratory Rate >20: Yes (22) Heart Rate >90: Yes (136) Temp<36 C (96.8 F) or >38.3 C: No SBP <90 or MAP <65 mmHG: No New Acute Mental Status Change: No Is the patient on CPAP, BIPAP,: No Physician Orders Electrocardigram (05/01/25 13:43) Chest Portable (05/01/25 14:38) Blood Culture (05/01/25 15:27) Sodium Chloride 0.9% (05/01/25 15:45) Vital Signs Date Time Temp Pulse Resp B/P (MAP) Pulse Ox O2 Delivery O2 Flow Rate FiO2 05/01/25 16:32 99 22 155/92 (113) 96 05/01/25 13:32 122 05/01/25 13:25 97.7 136 22 165/88 95 97.7 Laboratory Tests Test 05/01/25 14:58 05/01/25 15:53 White Blood Count 13.7 10^3/uL (4.4-10.8) H Lactic Acid Level 1.3 mmol/L (0.4-2.0) Medications Medications Dose Ordered Sig/Mable Route Start Time Stop Time Status Last Admin Dose Admin Sodium Chloride 1,000 ml @ 1,000 mls/hr Q1H ONCE IV 05/01/25 15:45 05/01/25 16:44 DC 05/01/25 16:55 Departure 1 Departure Time of Disposition: 15:31 Impression: Primary Impression: Dehydration Additional Impression: Multiple sclerosis exacerbation Disposition: ADMITTED INPATIENT Admit to: Med Surg Condition: Guarded Critical Care Note Critical Care Time?: No Stability Stability form required: No Heart Score Heart Score: Heart Score Response (Comments) Value History N/A 0 EKG N/A 0 Age N/A 0 Risk Factors N/A 0 Troponin N/A 0 Total 0 I personally scribed for TEREZA ALLEN MD ([email or web address]) on 05/01/25 at 14:39. Electronically submitted by Heather Brooks ([email or web address]). TEREZA ALLEN MD May 01, 2025 14:39
[2025-05-01 15:15] LABS: Urine Protein, UAD Negative (Negative)
[2025-05-01 15:21] LABS: Hematocrit 36.5 % (36.0-46.0)
[2025-05-01 15:22] LABS: Hemoglobin 11.8 g/dL (12.2-16.2); Mean Corpuscular Hemoglobin 26.9 pg (28.0-32.0); Mean Corpuscular Volume 83.0 fL (80.0-100.0); Nucleated Red Blood Cells % 0.1 %
[2025-05-01 15:28] LABS: Chloride 100 mmol/L (98-107); Sodium 137 mmol/L (136-145)
[2025-05-01 15:29] LABS: Calcium 9.4 mg/dL (8.7-10.4); Carbon Dioxide 24 mmol/L (20-31)
[2025-05-01 15:34] LABS: BUN/Creatinine Ratio 10.0 (10.0-20.0)
[2025-05-01 15:35] LABS: Potassium 3.3 mmol/L (3.5-5.1)
[2025-05-01 15:36] LABS: Anion Gap 13 (5-15); Blood Urea Nitrogen 9 mg/dL (9-23); Glucose 111 mg/dL (74-106)
[2025-05-01] MEDS ORDERED: SODIUM CHLORIDE 0.9% 1,000 ML IV ONE (15:45)
--- NOTE | 2025-05-01 15:57 | DVH ---
CHEST RADIOGRAPH INDICATION: sob TECHNIQUE: Single frontal view of the chest was obtained COMPARISON: XY CHEST PORTABLE on DOS: 04/11/25 FINDINGS: Lines and Tubes: None Lungs: No focal consolidation. Scattered reticular opacities may reflect atypical pneumonia versus mild pulmonary interstitial edema. Pleura: No effusion. No pneumothorax. Cardiomediastinal contours: Unremarkable Bones: No acute osseous abnormality. IMPRESSION: 1. Scattered reticular opacities may reflect atypical pneumonia versus mild pulmonary interstitial edema.
[2025-05-01] MEDS: SODIUM CHLORIDE 0.9% 1,000 ML IV ONE (16:55)
--- NOTE | 2025-05-01 17:37 | ECG ---
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
[2025-05-01] MEDS: HYDROcodone-ACET 10/325MG TAB PO ONE (18:15)
[2025-05-01 22:59] VITALS: BP 158/92; PULSE 103; RESP 20; TEMP 98.3; O2SAT 95
[2025-05-06] MEDS ORDERED: HYDR25TA4 PO (03:38)
== END 2025-05-01 23:08 | disposition home or self-care (01) ==
LOC: ER 13:18
DX: G35.D Multiple sclerosis, unspecified (principal); E86.0 Dehydration; I10 Essential (primary) hypertension; Z79.899 Other long term (current) drug therapy
CPT/HCPCS: 36415; 71045; 80048; 81001; 83605; 85025; 87040; 93005; 96360; 96361; 99285; J7030